=== PATIENT | female | born 1940 | race Caucasian/White ===

== ENCOUNTER → 2017-11-04 | Outpatient (CLI) | payer BC ==
[~2017-11-04] MED LIST: HYDR-3419 PO
== END | disposition home or self-care (01) ==
LOC: C.PATHSPEC 13:18
PROVIDERS: ATTEND Physician Assistant
DX: C44.519 Basal cell carcinoma of skin of other part of trunk (principal)

== ENCOUNTER → 2017-11-24 | Outpatient (CLI) | payer BC | END | disposition home or self-care (01) | LOC: C.PATHSPEC 18:08 | PROVIDERS: ATTEND Plastic Surgery | DX: C44.519 Basal cell carcinoma of skin of other part of trunk (principal) ==

== ENCOUNTER 2021-02-08 15:50 | Inpatient (IN) ==
[2021-02-08] MEDS ORDERED: PANTOprazole 40 MG in SYRINGE 0 ML IV ONE (16:37)
[2021-02-08] MEDS ORDERED: PANTOprazole 80 MG in DEXTROSE 5% 100 ML IV ONE (16:37)
[2021-02-08] MEDS ORDERED: cefTRIAXone SODIUM 2,000 MG/70 ML BAG IV STA (16:49)
[2021-02-08] MEDS ORDERED: SODIUM CHLORIDE 0.9% 1000ML 1,000 ML IV ONE (16:49)
[2021-02-08] MEDS ORDERED: ONDANSETRON INJ 2 MG/ML 2 ML VIAL IV STA (16:49)
[2021-02-08] MEDS ORDERED: PANTOprazole 40 MG in DEXTROSE 5% 100 ML IV SCH (17:15)
[2021-02-08 17:17] LABS: Basophils # (auto) 0.05 K/uL (0-0.2); Basophils % (auto) 0.8 %; Eosinophils # (auto) 0.07 K/uL (0-0.5); Eosinophils % (auto) 1.1 %; Hematocrit (blood only) 23.9 % (37-47); Hemoglobin 7.9 g/dL (12.0-16.0); Immature Granulocytes # (auto) 0.01 K/uL (0.00-0.02); Immature Granulocytes % (auto) 0.2 %; Lymphocytes # (auto) 1.76 K/uL (1.2-3.4); Lymphocytes % (auto) 28.4 %; Mean Corpuscular Hemoglobin 29.4 pg (25-34); Mean Corpuscular Hgb Conc 33.1 g/dL (32-36); Mean Corpuscular Volume 88.8 fL (80-100); Mean Platelet Volume 9.8 fL (7.4-10.4); Monocytes # (auto) 0.33 K/uL (0.11-0.59); Monocytes % (auto) 5.3 %; Neutrophils # (auto) 3.98 K/uL (1.4-6.5); Neutrophils % (auto) 64.2 %; Platelet Count 225 K/uL (130-400); RDW Coefficient of Variation 16.4 % (11.5-14.5); Red Blood Count 2.69 M/uL (4.2-5.4)
[2021-02-08] MEDS ORDERED: SODIUM CHLORIDE 0.9% 250 ML IV PRN ×2 (17:21→21:56)
[2021-02-08 17:29] LABS: Partial Thromboplastin Ratio 0.8; Prothrombin Time 9.8 Seconds (9.0-12.0)
[2021-02-08 17:37] LABS: Albumin Level 3.2 gm/dl (3.4-5.0); BUN Creatinine Ratio 28.1 (10-20); Calcium 7.9 mg/dl (8.5-10.1); Creatinine Clr Calc Pharmacy 28.2 ml/min; Est GFR (African American) 48.6 ml/min; Est GFR (Non-African American) 41.9 ml/min; Potassium 4.2 mmol/L (3.5-5.1)
[2021-02-08 17:39] LABS: RBC Morphology Unremarkable
[2021-02-08 17:40] LABS: Albumin Globulin Ratio 1.3 (0.9-2); Bilirubin,Total 0.3 mg/dl (0.2-1); Globulin 2.5 gm/dl (2.5-4.0); Total Protein 5.7 gm/dl (6.4-8.2)
--- NOTE | 2021-02-08 17:44 | History & Physical Report ---
Date of Service February 08, 2021 Assessment & Plan (1) GIB (gastrointestinal bleeding): This is a 80-year-old female who has significant past medical history of CAD with history of CABG times 11/07/1998, HTN, HLD, CKD stage III, tobacco abuse, carotid artery disease who presents to ED secondary to coffee-ground emesis x3 5 days ago; black tarry stools x1 day. admit to PCU ordered 1 unit prbc will type and cross to hold additional unit trend h&H q6h NPO except sips/chips and strict NPO at midnight consult GI - Dr. Marti aware continue PPI bolus/gtt will avoid any further IVF given pt hemodynamically stable, order placed for nursing to notify provider if SBP < 110 ASA on hold (2) Anemia: Hemoglobin 7.9 Previously on 01/24/2020 hemoglobin 15.7 Secondary to GI loss Type and crossed to receive 1 unit will discuss to place a 2nd unit on hold (3) CAD (coronary artery disease): hx of CABG x 3 in 1998, L radial to LAD, SVG to obtuse marginal, vein graft to RCA follows [facility] cardiology no s/sx of angina on asa, statin, atenolol as outpt asa/atenolol on hold (4) Hypertension: Blood pressure stable, 133/74 will hold atenolol for now, will need reevaluated first thing in the morning (5) Tobacco abuse: Offer nicotine patch, patient declines Dispo: PCU PCP: Yasmeen DNR/DNI Patient was seen and examined in collaboration with Dr. Turner, please see addendum History of Present Illness Chief Complaint: Coffee-ground emesis x3 5 days ago; black tarry stools x1 today. Primary Care Provider: Sarabjit Arana MD This is a 80-year-old female who has significant past medical history of CAD with history of CABG times 11/07/1998, HTN, HLD, CKD stage III, tobacco abuse, carotid artery disease who presents to ED secondary to coffee-ground emesis x3 5 days ago; black tarry stools x1 day. She lives at home alone with her dog. She states on Tuesday she overall did not feel right. She developed acute nausea and the urge to vomit. She had significant vomiting x3 and estimated to be approximately 1 pint of volume and described as dark coffee grounds. She also admits to one small episode of vomiting later on that day. She denied any homero abdominal pain. Since then she had overall had decreased appetite, felt weak, lightheaded and dizzy. Today when she was going to urinate and she went to wipe she noticed black tarry stool on the toilet paper. This prompted her to seek ED. Daughter is at bedside. She denies any prior history of peptic ulcer disease or GI bleeding. She does take a baby aspirin daily secondary to CAD and her last dose was today. Prior to today she had not taken any medications for 5 days. Back in November she had a sore hand and was taking Advil daily and this was approximately for 2 weeks. She denies any alcohol use. She denies any fever, chills, sweats, syncope, chest pain, shortness of breath at rest, shortness breath with exertion, URI symptoms, cough, abdominal pain, dysuria, increased urgency or frequency with urination. In ED patient remained hemodynamically stable but she was found to have a hemoglobin of 7.9. She was typed and crossed in order to be transfused for 1 unit. She was also started on Protonix bolus and drip. Her creatinine was at baseline at 1.2. She was heme positive. Also of note she sustained a skin tear to her right rangel and has been using Neosporin on it daily. She states she fell over a baby gate a week prior. Allergies Allergy/AdvReac Type Severity Reaction Status Date / Time Sulfa (Sulfonamide Allergy Unknown HIVES Verified 02/09/21 08:37 Antibiotics) varenicline [From Chantix] AdvReac Depression Verified 02/09/21 08:37 Home Medications Medication Instructions Recorded Confirmed Type atenolol 25 mg PO QAM 05/20/18 02/08/21 History atorvastatin [Lipitor] 40 mg PO HS 05/20/18 02/08/21 History PreserVision AREDS 2 tab PO BID 02/08/21 02/08/21 History aspirin 81 mg PO QAM 02/08/21 02/08/21 History cholecalciferol (vitamin D3) 25 mcg PO 3XWK 02/08/21 02/08/21 History [Vitamin D3] famotidine [Pepcid] 40 mg PO DAILY PRN 02/08/21 02/08/21 History pantoprazole 40 mg PO BID #60 tab 02/09/21 Rx Past Med/Surg History Medical History CAD (coronary artery disease) Calcium kidney stone GERD (gastroesophageal reflux disease) Hyperlipidemia Hypertension Surgical History History of amputation of toe History of cataract surgery 2mg IV versed given without problems History of hemorrhoidectomy History of tubal ligation Hx of colonoscopy Hx of heart bypass surgery triple, 1998 Family History Mother Colorectal cancer Social History Smoking Status: Current every day smoker Cigarettes Per Day: 10; Second Hand Exposure: Yes; Do You Dip or Chew Tobacco: No; Tobacco Cessation Education Requested by Patient: No Hx Alcohol Use: No Hx Substance Use: No Preferred Language: Syriac Communication Ability: Effective Wet Finisher Required: No Beliefs That Will Affect Care: None marital status: / Current Living Situation: Alone Other Information That Helps Us Care for You: No Feels Safe at Home: Yes Safety Concerns: Feels Safe At This Time Assistive Devices: None Review of Systems Review of Systems: All systems reviewed & are unremarkable except as noted in HPI & below Physical Exam Physical Exam: Constitutional: Thin, petite, elderly, female, cachectic, vitals as above, NAD, sitting up in bed, pleasant, conversing easily Head: Normocephalic, Atraumatic Eyes: PERRL, conjunctivae normal, anicteric sclerae ENMT: external ear and nose normal, oropharynx normal Neck: trachea midline, no thyromegaly normal visual inspection Respiratory: normal respiratory effort, lungs clear to auscultation, no wheeze, rales, rhonchi. Normal insp/exp effort, no accessory muscle use Cardiovascular: RRR, no murmur, no edema Vessels: no JVD or carotid bruit Chest: normal inspection of chest Abdomen: normal bowel sounds, soft, nontender, no hepatosplenomegaly Musculoskeletal: no cyanosis or clubbing, extremities motor strength 5/5 Skin: no rashes, warm and dry normal turgor Neurologic: PERRL, EOMI, accommodation nl, no face palsy, no dysarthria CN's II-XI intact bilaterally and moves all extremities Psychiatric: A+Ox3, euthymic affect Lymphatic: no cervical or axillary lymphadenopathy : deferred Results & Data Results & Data ([facility]) Vital Signs (Past 12 Hours) Vital Signs Temp Pulse Resp BP Pulse Ox 02/08/21 15:53 36.8 C 81 16 133/74 100 Medications Administered Medication List Pantoprazole Sodium 40 mg/ (Dextrose) 100 mls @ 20 mls/hr IV Q5H DONAVON Stop: 03/10/21 17:14 Last Admin: 02/08/21 17:36 Dose: 8 mg/hr, 20 mls/hr Documented by: [id number] Discontinued Medications Pantoprazole Sodium 80 mg/ (Dextrose) 100 mls @ 400 mls/hr IV NOW ONE Stop: 02/08/21 16:51 Last Infusion: 02/08/21 18:27 Dose: 0 mls/hr Documented by: [id number] Admin: 02/08/21 17:14 Dose: 400 mls/hr Documented by: [id number] ECG Rate (beats per minute): 74 Rhythm: normal sinus Findings: + PAC and + T-wave inversion (t wave inversion leads V3, V4) COVID-19 Results Results COVID-19 Adm Lab Results: RBC 2.89 M/uL (4.2-5.4) L 02/09/21 WBC 6.34 K/uL (4.8-10.8) 02/09/21 Hgb 8.5 g/dL (12.0-16.0) L 02/09/21 Hct 25.4 % (37-47) L 02/09/21 Plt Count 193 K/uL (130-400) 02/09/21 Neutrophils (%) (Auto) 49.1 % 02/09/21 Lymphocytes (%) (Auto) 38.0 % 02/09/21 Monocytes # (Auto) 0.54 K/uL (0.11-0.59) 02/09/21 Eosinophils # (Auto) 0.21 K/uL (0-0.5) 02/09/21 Immature Granulocyte % (Auto) 0.2 % 02/09/21 Neutrophils # (Auto) 3.11 K/uL (1.4-6.5) 02/09/21 Lymphocytes # (Auto) 2.41 K/uL (1.2-3.4) 02/09/21 Monocytes # (Auto) 0.54 K/uL (0.11-0.59) 02/09/21 Eosinophils # (Auto) 0.21 K/uL (0-0.5) 02/09/21 Basophils # (Auto) 0.06 K/uL (0-0.2) 02/09/21 Immature Granulocyte # (Auto) 0.01 K/uL (0.00-0.02) 02/09/21 Red Blood Cell Morphology Unremarkable 02/08/21 Na 144 mmol/L (136-145) 02/09/21 K 3.7 mmol/L (3.5-5.1) 02/09/21 Cl 112 mmol/L (98-107) H 02/09/21 CO2 26 mmol/L (21-32) 02/09/21 Anion Gap 6.0 (3-11) 02/09/21 BUN 25 mg/dl (7-18) H 02/09/21 Creatinine 0.91 mg/dl (0.6-1.2) 02/09/21 BUN/Creatinine Ratio 27.6 (10-20) H 02/09/21 Glucose Level 93 mg/dl (70-99) 02/09/21 Ca 7.7 mg/dl (8.5-10.1) L 02/09/21 Total Bilirubin 0.3 mg/dl (0.2-1) 02/08/21 AST/SGOT 20 U/L (15-37) 02/08/21 ALT/SGPT 22 U/L (12-78) 02/08/21 Alkaline Phosphatase 45 U/L (45-117) 02/08/21 Total Protein 5.7 gm/dl (6.4-8.2) L 02/08/21 Albumin 3.2 gm/dl (3.4-5.0) L 02/08/21 Globulin 2.5 gm/dl (2.5-4.0) 02/08/21 Albumin/Globulin Ratio 1.3 (0.9-2) 02/08/21 PTT < 20.0 Seconds (21.0-31.0) L 02/08/21 INR 1.0 (0.9-1.1) 02/08/21 COVID-19 PCR NEGATIVE (Negative) 02/08/21 Chest X-Ray 02/08/21 Code Status & VTE Plan Code Status DNR/DNI VTE Prophylaxis Plan VTE Prophylaxis will be ordered: Yes Reason for no VTE drug order: Contraindicated Supervising Physician Co-Signing Physician Notes Pt was seen and examined. Agreed with Faith EL exam, assessment and plan. 80-year-old female with significant past medical history of CAD with history of CABG, HTN, HLD, CKD stage III, tobacco abuse, carotid artery disease who presents to ED for coffee-ground emesis about 5 days ago and black tarry stools x1 day. Pt said that she feels weak, lightheaded and dizzy today. She said that today after urinating, she wiped and noticed black tarry stool on the toilet paper. She said that she takes a baby aspirin daily. She denies any additional NSAID in the last 2 weeks. Denies any fever, chills, sweats, syncope, chest pain, shortness of breath and palpitation. in the ED, her hgb was 7.9 and heme was positive. She was also started on Protonix bolus and drip. Type and crossed done in the ER and will get 1 unit PRBC. Will consult Gastro. Will make NPO after midnight for possible EGD. Continue monitor CBC closely. MD Yue
[2021-02-08 18:22] LABS: Partial Thromboplastin Time < 20.0 Seconds (21.0-31.0)
--- NOTE | 2021-02-08 18:45 | Emergency Department Note ---
Impression & Plan Anemia, GIB (gastrointestinal bleeding) ED Provider Note NAME: CARLENE PALMA AGE: 80 SEX: F : 1940 ARRIVES VIA: Walk-In INFORMANT: Patient, daughter ED PROVIDER(S): Terrence Butler MD CHIEF COMPLAINT: Black tarry stools HPI: This is an 80-year-old female accompanied by her daughter who presents emergency department complaining of black tarry stools. The patient's daughter reports that the patient was having coffee-ground emesis approximately 5 days ago on Tuesday. The patient herself reports that she has been feeling weak and generally tired over the past several days. She reports any exertion makes the weakness worse however rest makes it better. She has not taken anything for the weakness. In addition the patient also notes that she developed black tarry stools this morning. She reports she has previously had a colonoscopy however has not had no issues. She reports never having a GI bleed before. She reports taking a large amount of ibuprofen for a fall that occurred when she injured her hand back in November. She is currently only on aspirin and no other blood thinners. ROS: See above HPI for pertinent positives & negatives. A total of 10 systems reviewed and were otherwise negative. PAST MEDICAL HISTORY: See Below PAST SURGICAL HISTORY: See Below FAMILY HISTORY: See Below SOCIAL HISTORY: See Below HOME MEDICATIONS: See Below ALLERGIES: See Below VITALS: See Below PHYSICAL EXAMINATION: VITAL SIGNS - Vital signs and nursing notes were reviewed. GENERAL - 80-year-old female appearing stated age who is in no acute distress. Communicates well with provider and answers questions appropriately. SKIN - Without rashes. HEAD - NC/AT. EYES - PERRL with EOMI bilaterally. Sclera anicteric. Palpebral conjunctiva pink and moist with no injection noted. EARS - No deformities of external structures noted on gross examination bilaterally. NOSE - Midline and without cyanosis. No epistaxis or purulent drainage noted. Septum midline without deviation or septal hematoma noted. MOUTH/OROPHARYNX - Without perioral cyanosis. Buccal mucosa pink and moist and without leukoplakia. Tongue midline with equal elevation of palate bilaterally. No tonsillar hypertrophy, erythema, or exudates noted. NECK - Neck with FROM. Supple to palpation. No nuchal rigidity. LUNGS - Chest wall symmetric without accessory muscle use, intercostals retractions, or central cyanosis. Normal vesicular breath sounds CTA B/L. No wheezes, rales, or rhonchi appreciated. CARDIAC - RRR with S1/S2. No murmur, rubs, or gallops appreciated. ABDOMEN - Abdominal contour without pulsations or visible masses. BS normoactive all four quadrants. No tenderness, palpable masses, hepatosplenomegaly, or ascites noted. RECTAL - Black tarry stool, heme positive EXTREMITIES - No clubbing or peripheral cyanosis. No pretibial edema present. +3/5 radial, posterior tibial, and dorsalis pedis pulses palpated throughout. +5/5 strength noted in UE/LE bilaterally. NEUROLOGIC - Cranial nerves II through XII grossly intact. Sensory intact to light touch throughout. Patellar reflexes +2/4. PSYCH - A&Ox3 and cooperates fully with examiner. Pt is very pleasant and interacts well with examiner. MEDICAL DECISION MAKING: Patient was seen and evaluated as above in room C8. Review was performed of nursing notes and vital signs. I did review pertinent previous visits and pat ient history. After obtaining a thorough history and physical examination the above work up was performed. 70-year-old female who presents emergency department complaining of black tarry stools. Stools are heme positive on my physical examination. Patient was started on IV Protonix bolus and drip. She was swabbed for coronavirus. She was typed and screened for 2 units of packed red blood cells. Her hemoglobin is only 7.8. Blood consent was signed and placed on the chart. Patient was typed and crossed for 1 unit of packed red blood cells. I did discuss the case with the hospitalist service who did agree to admit the patient. Patient is in agreement with the treatment plan. An order was placed for continuous cardiac monitoring. The monitor shows a rate of 81 with Normal SInus rhythm. The patient was evaluated during a period of high volume and high acuity during the global COVID-19 pandemic, and that diagnosis was suspected/considered upon their initial presentation. Their evaluation, treatment and testing was consistent with current guidelines for patients who present with complaints or symptoms that may be related to COVID-19. Patient was seen while provider was wearing PPE. Triage Nursing notes reviewed. Prior medical records reviewed Vital Signs: reviewed and remarkable for no significant abnormalities Differential diagnosis: Diverticulosis, AVM, coagulopathy, colitis, inflammatory bowel disease, malignancy, Yanira-Vicente tear, esophagitis, peptic ulcer disease, variceal bleed, gastritis, epistaxis, fissure, hemorrhoids, as well as other pathologies. ER treatment provided: See below Diagnostics interpreted by me: ECG: EKG shows a sinus rhythm with premature atrial complex old septal infarct QTC is 424 ventricular rate is 74 EKG is compared to EKG 07/18/2013 PACs are now present T wave inversions in the inferior leads are now present Laboratory studies: As stated above and show below. Imaging studies: See below Consultation(s): Internal Medicine Critical Care: I have personally spent greater than 30 minutes of critical care time in the direct management of this patient. This includes bedside care, interpretation o f diagnostic studies, and testing, discussion with consultants, patient, and family members, and other required patient management activities. This 30 minutes is in excess of all separately billable procedures. Past Med/Surg History Medical History CAD (coronary artery disease) Calcium kidney stone GERD (gastroesophageal reflux disease) Hyperlipidemia Hypertension Surgical History History of amputation of toe History of cataract surgery 2mg IV versed given without problems History of hemorrhoidectomy History of tubal ligation Hx of colonoscopy Hx of heart bypass surgery triple, 1998 Family History Mother Colorectal cancer Social History Smoking Status: Current every day smoker Cigarettes Per Day: 10; Second Hand Exposure: Yes; Do You Dip or Chew Tobacco: No; Tobacco Cessation Education Requested by Patient: No Hx Alcohol Use: No Hx Substance Use: No Preferred Language: Sierra Leonean Communication Ability: Effective Fire Support Specialist Required: No Beliefs That Will Affect Care: None marital status: / Current Living Situation: Alone Other Information That Helps Us Care for You: No Feels Safe at Home: Yes Safety Concerns: Feels Safe At This Time Assistive Devices: None Allergies Allergies Allergy/AdvReac Type Severity Reaction Status Date / Time Sulfa (Sulfonamide Allergy Unknown HIVES Verified 02/09/21 08:37 Antibiotics) varenicline [From Chantix] AdvReac Depression Verified 02/09/21 08:37 Home Meds Home Medications Medication Instructions Recorded Confirmed atenolol 25 mg PO QAM 05/20/18 02/08/21 atorvastatin [Lipitor] 40 mg PO HS 05/20/18 02/08/21 PreserVision AREDS 2 tab PO BID 02/08/21 02/08/21 aspirin 81 mg PO QAM 02/08/21 02/08/21 cholecalciferol (vitamin D3) 25 mcg PO 3XWK 02/08/21 02/08/21 [Vitamin D3] famotidine [Pepcid] 40 mg PO DAILY PRN 02/08/21 02/08/21 Previous Rx's Medication Instructions Recorded pantoprazole 40 mg PO BID #60 tab 02/09/21 Results & Data (ED) Vital Signs Vital Signs - 24 hr 02/08/21 15:53 Temperature 36.8 C Temperature Source Temporal Artery Scan Pulse Rate 81 Pulse Rhythm Regular Pulse Strength Normal Respiratory Rate 16 Respiratory Effort / Characteristics Non-Labored Respiratory Depth Normal Respiratory Pattern Regular Blood Pressure 133/74 Blood Pressure Mean 93 Blood Pressure Position Sitting Pulse Oximetry 100 Oxygen Delivery Method Room Air Sepsis Recent Fever Within 48 Hours No Sepsis New/Unexplained Change in Mental Status N/A Sepsis Action Taken by Nursing No Action Required Laboratory Data Result diagrams: 02/09/21 05:16 02/09/21 05:16 Lab Results 02/08/21 02/08/21 02/08/21 Range/Units 16:37 17:02 17:02 WBC 6.20 (4.8-10.8) K/uL RBC 2.69 L (4.2-5.4) M/uL Hgb 7.9 L (12.0-16.0) g/dL Hct 23.9 L (37-47) % MCV 88.8 (80-100) fL MCH 29.4 (25-34) pg MCHC 33.1 (32-36) g/dL RDW Std Deviation 52.0 H (36.4-46.3) fL RDW Coeff of Essie 16.4 H (11.5-14.5) % Plt Count 225 (130-400) K/uL MPV 9.8 (7.4-10.4) fL Immature Gran % (Auto) 0.2 % Neut % (Auto) 64.2 % Lymph % (Auto) 28.4 % Dickey % (Auto) 5.3 % Eos % (Auto) 1.1 % Baso % (Auto) 0.8 % Neut # (Auto) 3.98 (1.4-6.5) K/uL Lymph # (Auto) 1.76 (1.2-3.4) K/uL Dickey # (Auto) 0.33 (0.11-0.59) K/uL Eos # (Auto) 0.07 (0-0.5) K/uL Baso # (Auto) 0.05 (0-0.2) K/uL Immature Gran # (Auto) 0.01 (0.00-0.02) K/uL RBC Morphology Unremarkable PT (9.0-12.0) Seconds INR (0.9-1.1) APTT (21.0-31.0) Seconds PTT Ratio Sodium (136-145) mmol/L Potassium (3.5-5.1) mmol/L Chloride (98-107) mmol/L Carbon Dioxide (21-32) mmol/L Anion Gap (3-11) BUN (7-18) mg/dl Creatinine (0.6-1.2) mg/dl Est Cr Clr Drug Dosing ml/min Est GFR ( Amer) ml/min Est GFR (Non-Af Amer) ml/min BUN/Creatinine Ratio (10-20) Glucose (70-99) mg/dl Calcium (8.5-10.1) mg/dl Total Bilirubin (0.2-1) mg/dl AST (15-37) U/L ALT (12-78) U/L Alkaline Phosphatase (45-117) U/L Total Protein (6.4-8.2) gm/dl Albumin (3.4-5.0) gm/dl Globulin (2.5-4.0) gm/dl Albumin/Globulin Ratio (0.9-2) POC Stool Occult Blood Positive A (Negative) Blood Type O Positive Antibody Screen NEGATIVE Crossmatch See Detail 02/08/21 02/08/21 Range/Units 17:02 17:02 WBC (4.8-10.8) K/uL RBC (4.2-5.4) M/uL Hgb (12.0-16.0) g/dL Hct (37-47) % MCV (80-100) fL MCH (25-34) pg MCHC (32-36) g/dL RDW Std Deviation (36.4-46.3) fL RDW Coeff of Essie (11.5-14.5) % Plt Count (130-400) K/uL MPV (7.4-10.4) fL Immature Gran % (Auto) % Neut % (Auto) % Lymph % (Auto) % Dickey % (Auto) % Eos % (Auto) % Baso % (Auto) % Neut # (Auto) (1.4-6.5) K/uL Lymph # (Auto) (1.2-3.4) K/uL Dickey # (Auto) (0.11-0.59) K/uL Eos # (Auto) (0-0.5) K/uL Baso # (Auto) (0-0.2) K/uL Immature Gran # (Auto) (0.00-0.02) K/uL RBC Morphology PT 9.8 (9.0-12.0) Seconds INR 1.0 (0.9-1.1) APTT < 20.0 L (21.0-31.0) Seconds PTT Ratio 0.8 Sodium 142 (136-145) mmol/L Potassium 4.2 (3.5-5.1) mmol/L Chloride 111 H (98-107) mmol/L Carbon Dioxide 26 (21-32) mmol/L Anion Gap 5.0 (3-11) BUN 34 H (7-18) mg/dl Creatinine 1.21 H (0.6-1.2) mg/dl Est Cr Clr Drug Dosing 28.2 ml/min Est GFR ( Amer) 48.6 ml/min Est GFR (Non-Af Amer) 41.9 ml/min BUN/Creatinine Ratio 28.1 H (10-20) Glucose 100 H (70-99) mg/dl Calcium 7.9 L (8.5-10.1) mg/dl Total Bilirubin 0.3 (0.2-1) mg/dl AST 20 (15-37) U/L ALT 22 (12-78) U/L Alkaline Phosphatase 45 (45-117) U/L Total Protein 5.7 L (6.4-8.2) gm/dl Albumin 3.2 L (3.4-5.0) gm/dl Globulin 2.5 (2.5-4.0) gm/dl Albumin/Globulin Ratio 1.3 (0.9-2) POC Stool Occult Blood (Negative) Blood Type Antibody Screen Crossmatch Administered Medications Discontinued Medications Atenolol (Atenolol 25 Mg Tablet) 25 mg PO QAM DONAVON Stop: 03/11/21 08:59 Last Admin: 02/09/21 08:00 Dose: Not Given Documented by: [id number] Atorvastatin Calcium (Atorvastatin 40 Mg Tab) 40 mg PO HS DONAVON Stop: 03/10/21 21:55 Last Admin: 02/08/21 22:26 Dose: 40 mg Documented by: [id number] Pantoprazole Sodium 80 mg/ (Dextrose) 100 mls @ 400 mls/hr IV NOW ONE Stop: 02/08/21 16:51 Last Infusion: 02/08/21 18:27 Dose: 0 mls/hr Documented by: [id number] Admin: 02/08/21 17:14 Dose: 400 mls/hr Documented by: [id number] Ceftriaxone Sodium (Rocephin) 2,000 mg in 70 mls @ 140 mls/hr IV NOW STA Stop: 02/08/21 17:18 Last Admin: 02/08/21 19:43 Dose: Not Given Documented by: [id number] Sodium Chloride (Nss 1000ml) 1,000 mls @ 999 mls/hr IV .[id number] ONE Stop: 02/08/21 17:49 Last Admin: 02/08/21 20:45 Dose: Not Given Documented by: [id number] Pantoprazole Sodium 40 mg/ (Dextrose) 100 mls @ 20 mls/hr IV Q5H DONAVON Stop: 03/10/21 17:14 Last Infusion: 02/08/21 21:59 Dose: 0 mg/hr, 0 mls/hr Documented by: [id number] Admin: 02/08/21 17:36 Dose: 8 mg/hr, 20 mls/hr Documented by: [id number] Pantoprazole Sodium 40 mg/ (Dextrose) 100 mls @ 20 mls/hr IV Q5H DONAVON Stop: 03/10/21 22:29 Last Infusion: 02/09/21 15:00 Dose: 0 mg/hr, 0 mls/hr Documented by: [id number] Admin: 02/09/21 09:47 Dose: 8 mg/hr, 20 mls/hr Documented by: [id number] Infusion: 02/09/21 08:56 Dose: 8 mg/hr, 20 mls/hr Documented by: [id number] Admin: 02/09/21 03:56 Dose: 8 mg/hr, 20 mls/hr Documented by: [id number] Infusion: 02/09/21 03:56 Dose: 8 mg/hr, 20 mls/hr Documented by: [id number] Admin: 02/08/21 23:06 Dose: 8 mg/hr, 20 mls/hr Documented by: [id number] Sodium Chloride (Nss) 500 mls @ 500 mls/hr IV .Q1H ONE Stop: 02/09/21 05:39 Last Infusion: 02/09/21 06:17 Dose: 0 mls/hr Documented by: [id number] Admin: 02/09/21 05:14 Dose: 500 mls/hr Documented by: [id number] Lactated Ringer's (Lr) 1,000 mls @ 60 mls/hr IV .[id number] DONAVON Stop: 03/11/21 05:44 Last Infusion: 02/09/21 15:38 Dose: 0 mls/hr Documented by: [id number] Admin: 02/09/21 06:18 Dose: 60 mls/hr Documented by: [id number] Multivitamins/Minerals (Cerovite Adv Formula Tab) 1 tab PO BID DONAVON Stop: 03/10/21 21:55 Last Admin: 02/09/21 08:01 Dose: Not Given Documented by: [id number] Admin: 02/08/21 22:26 Dose: 1 tab Documented by: [id number] Neomycin/Polymyxin/Bacitracin (Neomycin/Polymyx/Bacitr Oint 15 Gm Tube) 1 appln EXT DAILY DONAVON Stop: 03/10/21 21:55 Last Admin: 02/08/21 22:26 Dose: 1 appln Documented by: [id number] Ondansetron HCl (Ondansetron Inj 2 Mg/Ml 2 Ml Vial) 4 mg IV NOW STA Stop: 02/08/21 16:50 Last Admin: 02/08/21 20:45 Dose: Not Given Documented by: [id number] Discharge Plan Visit Data Chief Complaint: GI Assessment Stated Complaint: WEAKNESS,TARRY STOOL ED Provider: Terrence Butler Discharge Problem: Anemia, GIB (gastrointestinal bleeding) Patient Disposition: Admitted As Inpatient Discharge Instructions Interventions: ED Discharge Assessment Last Done: 02/08/21 20:50
--- NOTE | 2021-02-08 18:50 | XRay Report ---
XR chest 1V portable HISTORY: Preop. COMPARISON: None. FINDINGS: Mild emphysema with chronic mild interstitial thickening. No new focal lung consolidations to suggest pneumonia. No evidence for pulmonary edema. The heart is mildly enlarged. There are postst ernotomy changes. IMPRESSION: Emphysema and mild chronic interstitial thickening.. No acute process within the chest. ACT 112: Negative or not required by law. Electronically signed by: Chilango Marrero M.D. 02/08/2021 6:49 PM
[2021-02-08] MEDS ORDERED: PNEUMOCOCCAL POLYSACCHARIDES 25 MCG/0.5 ML VIAL/SYR IM ONE (21:50)
[2021-02-08] MEDS ORDERED: NEOMYCIN/POLYMYX/BACITR OINT 15 GM TUBE EXT SCH (21:56)
[2021-02-08] MEDS ORDERED: ATORVASTATIN 40 MG TAB PO SCH (21:56)
[2021-02-08] MEDS ORDERED: ONDANSETRON INJ 2 MG/ML 2 ML VIAL IV PRN (21:56)
[2021-02-08] MEDS ORDERED: POLYETHYLENE (MIRALAX) 17 GM PACK PO PRN (21:56)
[2021-02-08] MEDS ORDERED: ALUMINUM/MAGNESIUM SUSP 30 ML UDC PO PRN (21:56)
[2021-02-08] MEDS ORDERED: ACETAMINOPHEN 325 MG TAB PO PRN (21:56)
[2021-02-08] MEDS: CEROVITE ADV FORMULA TAB PO SCH (22:26)
[2021-02-08] MEDS: PANTOprazole 40 MG in DEXTROSE 5% 100 ML IV SCH (23:06)
[2021-02-09 00:53] LABS: Hematocrit (blood only) 26.5 % (37-47); Hemoglobin 8.5 g/dL (12.0-16.0); Mean Corpuscular Hemoglobin 28.7 pg (25-34); Mean Corpuscular Hgb Conc 32.1 g/dL (32-36); Mean Corpuscular Volume 89.5 fL (80-100); Mean Platelet Volume 10.1 fL (7.4-10.4); Platelet Count 208 K/uL (130-400); RDW Coefficient of Variation 16.1 % (11.5-14.5); RDW Standard Deviation 51.5 fL (36.4-46.3); Red Blood Count 2.96 M/uL (4.2-5.4); White Blood Count 6.85 K/uL (4.8-10.8)
[2021-02-09] MEDS: PANTOprazole 40 MG in DEXTROSE 5% 100 ML IV SCH ×2 (03:56→09:47)
[2021-02-09] MEDS ORDERED: SODIUM CHLORIDE 0.9% 500 ML IV ONE (04:40)
[2021-02-09 05:25] LABS: Basophils # (auto) 0.06 K/uL (0-0.2); Basophils % (auto) 0.9 %; Eosinophils # (auto) 0.21 K/uL (0-0.5); Eosinophils % (auto) 3.3 %; Hematocrit (blood only) 25.4 % (37-47); Hemoglobin 8.5 g/dL (12.0-16.0); Immature Granulocytes # (auto) 0.01 K/uL (0.00-0.02); Immature Granulocytes % (auto) 0.2 %; Lymphocytes # (auto) 2.41 K/uL (1.2-3.4); Mean Corpuscular Hemoglobin 29.4 pg (25-34); Mean Corpuscular Hgb Conc 33.5 g/dL (32-36); Mean Corpuscular Volume 87.9 fL (80-100); Mean Platelet Volume 9.8 fL (7.4-10.4); Monocytes # (auto) 0.54 K/uL (0.11-0.59); Monocytes % (auto) 8.5 %; Neutrophils # (auto) 3.11 K/uL (1.4-6.5); Neutrophils % (auto) 49.1 %; Platelet Count 193 K/uL (130-400); RDW Coefficient of Variation 15.9 % (11.5-14.5); RDW Standard Deviation 50.5 fL (36.4-46.3); Red Blood Count 2.89 M/uL (4.2-5.4); White Blood Count 6.34 K/uL (4.8-10.8)
[2021-02-09 05:43] LABS: BUN Creatinine Ratio 27.6 (10-20); Calcium 7.7 mg/dl (8.5-10.1); Creatinine Clr Calc Pharmacy 35.4 ml/min; Est GFR (African American) 68.6 ml/min; Est GFR (Non-African American) 59.2 ml/min; Magnesium 2.1 mg/dl (1.8-2.4); Potassium 3.7 mmol/L (3.5-5.1)
[2021-02-09] MEDS ORDERED: LACTATED RINGER'S 1,000 ML IV SCH (05:45)
[2021-02-09] MEDS: CEROVITE ADV FORMULA TAB PO SCH (08:01)
[2021-02-09] MEDS ORDERED: ATROPINE SULFATE 0.1 MG/ML 10ML SYR IV PRN (08:35)
[2021-02-09] MEDS ORDERED: ePHEDrine sulfate 50 MG/ML AMP IV PRN (08:35)
--- NOTE | 2021-02-09 08:35 | Anesthesiology Consultation ---
Date of Service February 09, 2021 Assessment & Plan ASA ASA3 Proposed Anesthesia Anesthesia Type: MAC Risk / Benefits Reviewed With: PT / POA / Parent / Guardian, Accepts Plan and Informed Consent Obtained History Surgery Operation Date: 02/09/21 16:15 Proposed Procedures p Esophagogastroduodenoscopy Dr Cook - Onofre Cook MD Height/Weight Height: 5 ft 5 in Weight: 46.3 kg Allergies Allergy/AdvReac Type Severity Reaction Status Date / Time Sulfa (Sulfonamide Allergy Unknown HIVES Verified 02/08/21 16:30 Antibiotics) varenicline [From Chantix] AdvReac Depression Verified 02/08/21 16:30 Medications Home Medications Medication Instructions Recorded Confirmed Last Taken atenolol 25 mg PO QAM 05/20/18 02/08/21 02/08/21 atorvastatin [Lipitor] 40 mg PO HS 05/20/18 02/08/21 02/03/21 aspirin 81 mg PO QAM 02/08/21 02/08/21 02/08/21 cholecalciferol (vitamin D3) 25 mcg PO 3XWK 02/08/21 02/08/21 02/04/21 [Vitamin D3] famotidine [Pepcid] 40 mg PO DAILY PRN 02/08/21 02/08/21 Unknown vitamins A,C,[id number]-[id number] 2 tab PO BID 02/08/21 02/08/21 02/08/21 [PreserVision AREDS] Active Medications Generic Name Dose Route Start Last Admin Trade Name Freq PRN Reason Stop Dose Admin Atenolol 25 mg 02/09/21 09:00 02/09/21 08:00 Atenolol 25 Mg Tablet PO 03/11/21 08:59 Not Given QAM DONAVON Atorvastatin Calcium 40 mg 02/08/21 21:56 02/08/21 22:26 Atorvastatin 40 Mg Tab PO 03/10/21 21:55 40 mg HS DONAVON Administration Pantoprazole Sodium 40 mg/ 100 mls @ 20 mls/hr 02/08/21 22:30 02/09/21 03:56 Dextrose IV 03/10/21 22:29 8 mg/hr Q5H DONAVON 20 mls/hr Administration 8 MG/HR Lactated Ringer's 1,000 mls @ 60 mls/hr 02/09/21 05:45 02/09/21 06:18 Lr IV 03/11/21 05:44 60 mls/hr .[id number] DONAVON Administration Multivitamins/Minerals 1 tab 02/08/21 21:56 02/09/21 08:01 Cerovite Adv Formula Tab PO 03/10/21 21:55 Not Given BID DONAVON Neomycin/Polymyxin/Bacitracin 1 appln 02/08/21 21:56 02/08/21 22:26 Neomycin/Polymyx/Bacitr Oint 15 Gm Tube EXT 03/10/21 21:55 1 appln DAILY DONAVON Administration Past Medical History Medical History CAD (coronary artery disease) Calcium kidney stone GERD (gastroesophageal reflux disease) Hyperlipidemia Hypertension Exercise / Class Metabolic Activity II 4-5 Yardwork/Stairs/Walk up hill Past Family History Family History Mother Colorectal cancer Past Surgical History Surgical History History of amputation of toe History of cataract surgery 2mg IV versed given without problems History of hemorrhoidectomy History of tubal ligation Hx of colonoscopy Hx of heart bypass surgery , 1998 Past Anesthesia History No Hx of Anesthesia Complications and No Family Hx of Anesthesia Complications History of PONV No Hx of PONV and No Hx of Motion Sickness Social History Smoking Status: Current every day smoker tobacco type: cigarettes Smoking cigarettes per day: 10 Do You Dip or Chew Tobacco: No Hx Alcohol Use: No Hx Substance Use: No substance use type: does not use Review of Systems denies fever/cough/ colds/ chest pain/ SOB/ MICHELLE denies MICHELLE Physical Exam Vital Signs Last Vital Signs Temp 36.6 C 02/09/21 07:24 Pulse 57 L 02/09/21 08:00 Resp 16 02/09/21 07:24 BP 108/60 02/09/21 07:24 Pulse Ox 93 02/09/21 07:24 ENMT Mouth: + edentulous; no TMJ abnormality and no dentition abnormality Thyromental Distance: > or= 3.5 Finger Breadths Mallampati Class: II Neck neck extension not limited Respiratory normal respiratory effort; no respiratory distress Auscultation: lungs clear to auscultation bilaterally Cardiovascular Rate/Rhythm: regular rate and regular rhythm Neurologic moves all extremities Psychiatric Orientation: alert and oriented x 3 Testing Laboratory Results 02/09/21 05:16 02/09/21 05:16 PT 9.8 Seconds (9.0-12.0) 02/08/21 17:02 INR 1.0 (0.9-1.1) 02/08/21 17:02 APTT < 20.0 Seconds (21.0-31.0) L 02/08/21 17:02 Blood Type O Positive 02/08/21 17:02 Antibody Screen NEGATIVE 02/08/21 17:02
--- NOTE | 2021-02-09 08:38 | History & Physical Report ---
Date of Service February 09, 2021 Assessment & Plan Admission and Anticipated Discharge Date Admission Date: February 08, 2021 History of Present Illness Primary Care Provider: Sarabjit Arana MD UGIB CV: RRR Resp: CTA Abd: soft A/P: UGIB - EGD Allergies Allergy/AdvReac Type Severity Reaction Status Date / Time Sulfa (Sulfonamide Allergy Unknown HIVES Verified 02/09/21 08:37 Antibiotics) varenicline [From Chantix] AdvReac Depression Verified 02/09/21 08:37 Home Medications Medication Instructions Recorded Confirmed Type atenolol 25 mg PO QAM 05/20/18 02/08/21 History atorvastatin [Lipitor] 40 mg PO HS 05/20/18 02/08/21 History aspirin 81 mg PO QAM 02/08/21 02/08/21 History cholecalciferol (vitamin D3) 25 mcg PO 3XWK 02/08/21 02/08/21 History [Vitamin D3] famotidine [Pepcid] 40 mg PO DAILY PRN 02/08/21 02/08/21 History vitamins A,C,G-xzez-jyhvii 2 tab PO BID 02/08/21 02/08/21 History [PreserVision AREDS] Past Med/Surg History Medical History CAD (coronary artery disease) Calcium kidney stone GERD (gastroesophageal reflux disease) Hyperlipidemia Hypertension Surgical History History of amputation of toe History of cataract surgery 2mg IV versed given without problems History of hemorrhoidectomy History of tubal ligation Hx of colonoscopy Hx of heart bypass surgery triple, 1998 Family History Mother Colorectal cancer Social History Smoking Status: Current every day smoker Cigarettes Per Day: 10; Second Hand Exposure: Yes; Do You Dip or Chew Tobacco: No; Tobacco Cessation Education Requested by Patient: No Hx Alcohol Use: No Hx Substance Use: No Preferred Language: Irish Communication Ability: Effective 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 Beliefs That Will Affect Care: None marital status: / Current Living Situation: Alone Other Information That Helps Us Care for You: No Feels Safe at Home: Yes Safety Concerns: Feels Safe At This Time Assistive Devices: None Results & Data ([facility]) Vital Signs (Past 12 Hours) Vital Signs Temp Pulse Pulse Resp BP BP Pulse Ox 02/09/21 08:00 57 L 02/09/21 07:24 36.6 C 71 16 108/60 93 02/09/21 03:34 36.7 C 65 16 96/58 L 93 02/09/21 00:13 63 02/09/21 00:11 36.9 C 67 18 106/62 94 02/08/21 23:08 36.7 C 61 18 122/71 97 02/08/21 22:05 36.8 C 67 18 133/68 97 02/08/21 21:59 64 02/08/21 21:56 02/08/21 21:27 37.0 C 68 18 139/75 100 02/08/21 21:05 37.3 C 65 20 115/61 98 Pulse Ox 02/09/21 08:00 02/09/21 07:24 02/09/21 03:34 02/09/21 00:13 02/09/21 00:11 02/08/21 23:08 02/08/21 22:05 02/08/21 21:59 02/08/21 21:56 100 02/08/21 21:27 02/08/21 21:05 Code Status & VTE Plan VTE Prophylaxis Plan VTE Prophylaxis will be ordered: Yes Reason for no VTE drug order: Contraindicated
[2021-02-09] MEDS ORDERED: PROPOFOL IV EMULSION 10 MG/ML 20 ML VIAL IV ONE (08:59)
[2021-02-09] MEDS ORDERED: LIDOCAINE 2% 2 ML VIAL/AMP(20MG/ML) INFIL ONE (08:59)
[2021-02-09] MEDS ORDERED: ATENOLOL 25 MG TABLET PO SCH (09:00)
--- NOTE | 2021-02-09 09:09 | GI REPORT ---
Patient Name: Kane Diop Procedure Date: 02/09/2021 8:28 AM Date of : 1940 Admit Type: Inpatient Age: 80 Gender: Female Attending MD: Onofre Cook MD Procedure: Upper GI endoscopy Providers: Onofre Cook MD Referring MD: CARMEN HERRING Indications: Coffee-ground emesis Medicines: See the Anesthesia note for documentation of the administered medications Complications: No immediate complications. Estimated Blood Loss: Estimated blood loss: none. Procedure: Pre-Anesthesia Assessment: - ASA Grade Assessment: III - A patient with severe systemic disease. After obtaining informed consent, the endoscope was passed under direct vision. Throughout the procedure, the patient's blood pressure, pulse, and oxygen saturations were monitored continuously. The Endoscope was introduced through the mouth, and advanced to the second part of duodenum. The upper GI endoscopy was accomplished without difficulty. The patient tolerated the procedure well. Findings: The Z-line was regular and was found 40 cm from the incisors. There was a mild ring at the GE junction. The exam of the esophagus was otherwise normal. There was 7-8 mm small submucosal mass in the fundus of the stomach. There appeared to be a second 7-8 mm small submucosal mass in the fundus. There were three 4-5 benign appearing clean based ulcers in the antrum. There was patchy erythema in the antrum. The remainder of the stomach was normal. The duodenum was normal. Biopsies done from throught the stomach and also from ulcer edges. Impression: Antral ulcers, clean based. Submucosal mass in fundus. Recommendation: Discharge pt to floor. Oral BID PPI x 2 mos. Repeat EGD and EUS in 8 weeks. OK to continue antiplatelet therapy, minimize NSAIDs. Please call with questions. Onofre Cook M.D. Onofre Cook MD 02/09/2021 9:08:46 AM This report has been signed electronically. Note Initiated On: 02/09/2021 8:28 AM Number of Addenda: 0 I attest to the content of the Intraoperative Record and orders documented therein, exceptions below {[id number]}
--- NOTE | 2021-02-09 09:22 | Anesthesiology Progress Note ---
Date of Service February 09, 2021 Anesthesia Post Procedure Vital Signs Vital Signs: Temp Pulse Pulse Pulse Resp BP BP 02/09/21 09:08 66 18 98/52 L 02/09/21 08:30 36.5 C 67 14 127/69 02/09/21 08:00 57 L 02/09/21 07:24 36.6 C 71 16 108/60 02/09/21 03:34 36.7 C 65 16 96/58 L 02/09/21 00:13 63 02/09/21 00:11 36.9 C 67 18 106/62 02/08/21 23:08 36.7 C 61 18 122/71 02/08/21 22:05 36.8 C 67 18 133/68 02/08/21 21:59 64 02/08/21 21:56 02/08/21 21:27 37.0 C 68 18 139/75 02/08/21 21:05 37.3 C 65 20 115/61 02/08/21 20:35 37.3 C 65 20 115/61 02/08/21 20:20 37.1 C 65 20 108/57 L 02/08/21 20:00 37.1 C 69 19 114/60 02/08/21 19:01 68 19 02/08/21 19:00 70 15 85/55 L 02/08/21 18:50 65 16 02/08/21 18:40 66 15 02/08/21 18:30 65 19 103/58 L 02/08/21 18:20 71 19 02/08/21 18:10 69 19 02/08/21 18:01 68 26 H 02/08/21 18:00 69 22 111/65 02/08/21 17:50 71 18 111/52 L 02/08/21 17:40 68 23 02/08/21 17:30 70 14 02/08/21 17:20 70 19 02/08/21 17:10 71 17 02/08/21 17:00 69 25 H 02/08/21 16:50 73 17 02/08/21 16:40 70 16 02/08/21 16:30 72 20 02/08/21 16:20 72 17 02/08/21 16:17 73 17 02/08/21 16:15 78 24 114/67 02/08/21 15:53 36.8 C 81 16 133/74 02/08/21 15:29 77 19 133/92 Pulse Ox Pulse Ox 02/09/21 09:08 98 02/09/21 08:30 94 02/09/21 08:00 02/09/21 07:24 93 02/09/21 03:34 93 02/09/21 00:13 02/09/21 00:11 94 02/08/21 23:08 97 02/08/21 22:05 97 02/08/21 21:59 02/08/21 21:56 100 02/08/21 21:27 100 02/08/21 21:05 98 02/08/21 20:35 97 02/08/21 20:20 97 02/08/21 20:00 97 02/08/21 19:01 98 02/08/21 19:00 96 02/08/21 18:50 98 02/08/21 18:40 98 02/08/21 18:30 98 02/08/21 18:20 02/08/21 18:10 97 02/08/21 18:01 97 02/08/21 18:00 97 02/08/21 17:50 98 02/08/21 17:40 02/08/21 17:30 02/08/21 17:20 97 02/08/21 17:10 96 02/08/21 17:00 02/08/21 16:50 02/08/21 16:40 95 02/08/21 16:30 96 02/08/21 16:20 97 02/08/21 16:17 96 02/08/21 16:15 96 02/08/21 15:53 100 02/08/21 15:29 Transfer of Care Handoff Completed per policy Notes Mental Status: alert / awake / arousable and participated in evaluation Patient Amnestic to Procedure: Yes Nausea / Vomiting: adequately controlled Pain: adequately controlled Airway Patency, RR, SpO2: stable & adequate BP & HR: stable & adequate Hydration State: stable & adequate Anesthetic Complications: no major complications apparent and Pt Satisfied with anesthetic care
--- NOTE | 2021-02-09 13:44 | Electrocardiogram Report ---
Test Reason : Blood Pressure : / mmHG Vent. Rate : 074 BPM Atrial Rate : 074 BPM P-R Int : 150 ms QRS Dur : 074 ms QT Int : 382 ms P-R-T Axes : 094 046 059 degrees QTc Int : 424 ms Sinus rhythm with Premature atrial complexes Septal infarct (cited on or before 18-JUL-2013) Abnormal ECG When compared with ECG of 18-JUL-2013 13:45, Premature atrial complexes are now Present Nonspecific T wave abnormality now evident in Inferior leads Nonspecific T wave abnormality now evident in Lateral leads Confirmed by Terell Doyle ([id number]) on 02/09/2021 1:44:00 PM Referred By: REFERRED SELF Confirmed By:Terell Doyle
--- NOTE | 2021-02-09 15:25 | Hospitalist Progress Note ---
Date of Service February 09, 2021 Assessment & Plan (1) GIB (gastrointestinal bleeding): (2) Anemia: This is a 80-year-old female who has significant past medical history of CAD with history of CABG times 11/07/1998, HTN, HLD, CKD stage III, tobacco abuse, carotid artery disease who presents to ED secondary to coffee-ground emesis x3 5 days ago; black tarry stools x1 day. Hgb on admission 7.9 Type and crossed and received 1 unit of PRBC last night Hgb 8.5 today gastro on board S/P EGD done today showed antral ulcers with clean based. Submucosal mass in fundus. Case discussed with GI that recommended Oral BID PPI x 2 months. then Repeat EGD and EUS in 8 weeks. OK to continue antiplatelet therapy and minimize NSAIDs as per Gastro Ok from gastro standpoint to discharge home (3) CAD (coronary artery disease): hx of CABG x 3 in 1998, L radial to LAD, SVG to obtuse marginal, vein graft to RCA no s/sx of angina on asa, statin, atenolol as outpt Ok from gastro to continue aspirin (4) Hypertension: BP stable (5) Tobacco abuse: Counseling on smoking cessation PCP: Yasmeen DNR/DNI Discharge home today Admission and Anticipated Discharge Date Admission Date: February 08, 2021 Subjective Pt was seen and examined for follow up of GI bleed Lying in bed with no distress Pt said that she feels much better She said that she had a bowel movement this morning that was normal Pt had an EGD done this morning Denies any chest pain, palpitation, dizziness and SOB Review of Systems Review of Systems: All systems reviewed & are unremarkable except as noted in Subjective Physical Exam Physical Exam: General- No acute distress Head- atraumatic Eyes- PERRL, EOMI, ENT- oropharynx clear Neck- supple, no JVD Lungs- clear to auscultation Heart- regular rhythm; no murmur Abdomen- normal bowel sounds, soft, nontender Extremities- no calf tenderness Neuro- alert, oriented x 3; PERRL, EOMI; no facial palsy; no dysarthria Skin- warm & dry Results & Data Results & Data ([facility]) Vital Signs (Past 12 Hours) Vital Signs Temp Pulse Pulse Pulse Resp BP Pulse Ox 02/09/21 10:47 36.5 C 56 L 18 123/67 98 02/09/21 10:00 36.6 C 62 20 123/67 95 02/09/21 09:36 59 L 18 115/89 98 02/09/21 09:23 62 18 119/63 98 02/09/21 09:08 66 18 98/52 L 98 02/09/21 08:30 36.5 C 67 14 127/69 94 02/09/21 08:00 57 L 02/09/21 07:24 36.6 C 71 16 108/60 93 02/09/21 03:34 36.7 C 65 16 96/58 L 93
--- NOTE | 2021-02-18 00:46 | Discharge Summary ---
Date of Service February 09, 2021 Admission HPI Per Admitting Provider This is a 80-year-old female who has significant past medical history of CAD with history of CABG times 11/07/1998, HTN, HLD, CKD stage III, tobacco abuse, carotid artery disease who presents to ED secondary to coffee-ground emesis x3 5 days ago; black tarry stools x1 day. She lives at home alone with her dog. She states on Tuesday she overall did not feel right. She developed acute nausea and the urge to vomit. She had significant vomiting x3 and estimated to be approximately 1 pint of volume and described as dark coffee grounds. She also admits to one small episode of vomiting later on that day. She denied any homero abdominal pain. Since then she had overall had decreased appetite, felt weak, lightheaded and dizzy. Today when she was going to urinate and she went to wipe she noticed black tarry stool on the toilet paper. This prompted her to seek ED. Daughter is at bedside. She denies any prior history of peptic ulcer disease or GI bleeding. She does take a baby aspirin daily secondary to CAD and her last dose was today. Prior to today she had not taken any medications for 5 days. Back in November she had a sore hand and was taking Advil daily and this was approximately for 2 weeks. She denies any alcohol use. She denies any fever, chills, sweats, syncope, chest pain, shortness of breath at rest, shortness breath with exertion, URI symptoms, cough, abdominal pain, dysuria, increased urgency or frequency with urination. In ED patient remained hemodynamically stable but she was found to have a hemoglobin of 7.9. She was typed and crossed in order to be transfused for 1 unit. She was also started on Protonix bolus and drip. Her creatinine was at baseline at 1.2. She was heme positive. Also of note she sustained a skin tear to her right rangel and has been using Neosporin on it daily. She states she fell over a baby gate a week prior. Admission Exam Per Admitting Provider Constitutional: Thin, petite, elderly, female, cachectic, vitals as above, NAD, sitting up in bed, pleasant, conversing easily Head: Normocephalic, Atraumatic Eyes: PERRL, conjunctivae normal, anicteric sclerae ENMT: external ear and nose normal, oropharynx normal Neck: trachea midline, no thyromegaly normal visual inspection Respiratory: normal respiratory effort, lungs clear to auscultation, no wheeze, rales, rhonchi. Normal insp/exp effort, no accessory muscle use Cardiovascular: RRR, no murmur, no edema Vessels: no JVD or carotid bruit Chest: normal inspection of chest Abdomen: normal bowel sounds, soft, nontender, no hepatosplenomegaly Musculoskeletal: no cyanosis or clubbing, extremities motor strength 5/5 Skin: no rashes, warm and dry normal turgor Neurologic: PERRL, EOMI, accommodation nl, no face palsy, no dysarthria CN's II-XI intact bilaterally and moves all extremities Psychiatric: A+Ox3, euthymic affect Lymphatic: no cervical or axillary lymphadenopathy : deferred Principal Diagnosis (1) GIB (gastrointestinal bleeding): (2) Anemia: (3) CAD (coronary artery disease): (4) Hypertension: (5) Tobacco abuse: Discharge Exam General- No acute distress Head- atraumatic Eyes- PERRL, EOMI, ENT- oropharynx clear Neck- supple, no JVD Lungs- clear to auscultation Heart- regular rhythm; no murmur Abdomen- normal bowel sounds, soft, nontender Extremities- no calf tenderness Neuro- alert, oriented x 3; PERRL, EOMI; no facial palsy; no dysarthria Skin- warm & dry Discharge Data Allergies Allergy/AdvReac Type Severity Reaction Status Date / Time Sulfa (Sulfonamide Allergy Unknown HIVES Verified 02/09/21 08:37 Antibiotics) varenicline [From Chantix] AdvReac Depression Verified 02/09/21 08:37 Consultations 02/08/21 17:46 ED Decision to Admit Stat 02/08/21 18:33 Consult Gastroenterology Routine Procedures Performed Operation Date: 02/09/21 16:15 Actual Procedures p EGD Biopsy Cytology - Onofre Cook MD Ordered Studies XR chest 1V portable HISTORY: Preop. COMPARISON: None. FINDINGS: Mild emphysema with chronic mild interstitial thickening. No new focal lung consolidations to suggest pneumonia. No evidence for pulmonary edema. The heart is mildly enlarged. There are poststernotomy changes. IMPRESSION: Emphysema and mild chronic interstitial thickening.. No acute process within the chest. ACT 112: Negative or not required by law. Electronically signed by: Chilango Marrero M.D. 02/08/2021 6:49 PM Dictated: 02/08/211847Transcribed: 02/08/211847 Hospital Course (1) GIB (gastrointestinal bleeding): This is a 80-year-old female who has significant past medical history of CAD with history of CABG times 11/07/1998, HTN, HLD, CKD stage III, tobacco abuse, carotid artery disease who presents to ED secondary to coffee-ground emesis x3 5 days ago; black tarry stools x1 day. Hgb on admission 7.9 Type and crossed and received 1 unit of PRBC last night Hgb 8.5 today gastro on board S/P EGD admit to PCU ordered 1 unit prbc will type and cross to hold additional unit trend h&H q6h NPO except sips/chips and strict NPO at midnight consult GI - Dr. Marti aware continue PPI bolus/gtt will avoid any further IVF given pt hemodynamically stable, order placed for nursing to notify provider if SBP < 110 ASA on hold (2) Anemia: This is a 80-year-old female who has significant past medical history of CAD with history of CABG times 11/07/1998, HTN, HLD, CKD stage III, tobacco abuse, carotid artery disease who presents to ED secondary to coffee-ground emesis x3 5 days ago; black tarry stools x1 day. Hgb on admission 7.9 Type and crossed and received 1 unit of PRBC last night Hgb 8.5 today gastro on board S/P EGD done today showed antral ulcers with clean based. Submucosal mass in fundus. Case discussed with GI that recommended Oral BID PPI x 2 months. then Repeat EGD and EUS in 8 weeks. OK to continue antiplatelet therapy and minimize NSAIDs as per Gastro Ok from gastro standpoint to discharge home (3) CAD (coronary artery disease): hx of CABG x 3 in 1998, L radial to LAD, SVG to obtuse marginal, vein graft to RCA no s/sx of angina on asa, statin, atenolol as outpt Ok from gastro to continue aspirin (4) Hypertension: BP stable (5) Tobacco abuse: Counseling on smoking cessation PCP: [place] DNR/DNI Discharge home today Total Time Total Time Spent Total Time Spent (In Minutes): 35 minutes Total Time Includes: Examination of the Patient, Discharge Planning, Medication Reconciliation, Communication With Other Providers and Other Discharge Plan Discharge Items Patient Disposition: Home - Self-Care Reason For Visit: GIB Discharge Diagnosis: (1) GIB (gastrointestinal bleeding): (2) Anemia: (3) CAD (coronary artery disease): (4) Hypertension: (5) Tobacco abuse: Activity: Resume your previous activity Non-emergency contact: Primary Care Provider Call non-emergency contact if: you have any medication questions Follow-up/Referrals: Sarabjit Arana MD [Primary Care Provider] - (Date & Time 02/16/2021 2:00 PM Provider Sarabjit Arana III, MD Department [facility] ) Diet: Heart Healthy Addtl Attending Provider Instructions: Follow up with your primary care provider Dr. Arana on 02/16/2021 at 2:00 PM at the [facility] Follow up with gastroenterology to arrange for the repeat endoscopy and endoscopy ultrasound in 8 weeks ( Your provider can arrange for the referral) Continue Oral pantoprazole for 2 months. Check CBC in 1 week to monitor your hemoglobin Please minimize the use of NSAIDs such as Motrin, Aleve, Naproxen, Advil, Ibuprofen....due to risk of bleeding fall precaution Counseling on tobacco cessation Pending Studies at Discharge: No Stand-Alone Forms: My [facility], Smoking Cessation Medications and DC Order Prescriptions: New pantoprazole 40 mg tablet,delayed release (DR/EC) 40 mg PO BID Qty: 60 RF: 1 Continued atorvastatin [Lipitor] 40 mg Tablet 40 mg PO HS RF: 0 atenolol 25 mg Tablet 25 mg PO QAM RF: 0 famotidine [Pepcid] 40 mg Tablet 40 mg PO DAILY PRN (Reason: gastric upset) RF: 0 aspirin 81 mg Tablet,Delayed Release (Dr/Ec) 81 mg PO QAM RF: 0 cholecalciferol (vitamin D3) [Vitamin D3] 25 mcg (1,000 unit) Tablet 25 mcg PO 3XWK RF: 0 PreserVision AREDS 7,160 unit- 113 mg-100 unit Tablet 2 tab PO BID RF: 0 Discharge Orders: Discharge Order (Routine); Ordered 02/09/21 Ordered By: Darrell Turner Admission Data Admit Date/Time: 02/08/21 17:49 Attending Provider: Darrell Turner Admit Provider: Darrell Turner Primary Care Provider: Sarabjit Arana Other Providers: Darrell Turner ; Mai Marti Other Interventions: Discharge Summary Assessment (RN) Last Done: 02/09/21 15:58
== END 2021-02-09 17:25 | disposition home or self-care (01) | DRG 379 ==
LOC: ED 15:50 → 2S 17:49
DX: K92.2 Gastrointestinal hemorrhage, unspecified; Z66 Do not resuscitate; I25.10 Atherosclerotic heart disease of native coronary artery without angina pectoris; Z79.82 Long term (current) use of aspirin; D64.9 Anemia, unspecified; K21.9 Gastro-esophageal reflux disease without esophagitis; E78.5 Hyperlipidemia, unspecified; I10 Essential (primary) hypertension; F17.210 Nicotine dependence, cigarettes, uncomplicated

== ENCOUNTER 2023-05-31 12:08 | Inpatient (IN) ==
--- NOTE | 2023-05-31 12:15 | ED Triage Note ---
Date of Service May 31, 2023 History of Present Illness This patient was briefly evaluated while in triage. An abbreviated physical exam was performed. This patient is a 83-year-old Female who presents to the ED for evaluation of shortness of breath. She was sent from her doctor's office who said her oxygen level was 80. She reports cough and shortness of breath over the past 5 days. Physical Exam VITALS: Vitals are noted on the nurse's note and reviewed by myself. GENERAL: This is an 83-year-old female, sitting upright in chair in triage. SKIN: The skin was without rashes. HEART: Regular rate and rhythm without murmurs gallops or rubs. LUNGS: Decreased breath sounds throughout. NEURO: Patient was alert and oriented to person place and time. Initial orders for labs and / or imaging were placed and patient was placed in the waiting area until a bed is available. Please see further documentation for the full ED course.
[2023-05-31] MEDS ORDERED: ALBUT/IPRATROP 3MG/0.5MG NEB 3 ML VIAL NEB STA (13:15)
[2023-05-31] MEDS ORDERED: dexAMETHasone**PF** 10 MG/ML VIAL IV ONE (13:15)
[2023-05-31 13:23] LABS: Hematocrit (blood only) 47.8 % (37.0-47.0); Mean Corpuscular Hemoglobin 29.1 pg (25.0-34.0); Mean Corpuscular Hgb Conc 33.5 g/dL (32.0-36.0); Mean Corpuscular Volume 87.1 fL (80.0-100.0); Mean Platelet Volume 11.2 fL (9.4-12.4); Platelet Count 267 K/uL (130-400); RDW Coefficient of Variation 15.7 % (11.5-14.5); RDW Standard Deviation 50.1 fL (36.4-46.3); Red Blood Count 5.49 M/uL (4.20-5.40); White Blood Count 12.11 K/ul (4.8-10.8)
--- NOTE | 2023-05-31 13:27 | Emergency Department Note ---
Impression & Plan Acute exacerbation of chronic obstructive pulmonary disease, Hypoxia, Elevated troponin I level, Pneumonia ED Provider Note NAME: CARLENE PALMA AGE: 83 SEX: F : 1940 ARRIVES VIA: Walk-In INFORMANT: Patient, ED PROVIDER(S): Terell Street DO CHIEF COMPLAINT: Difficulty breathing HPI: The patient is an 83-year-old female who presented to the emergency department for an evaluation of difficulty breathing. The patient's had cough and difficulty breathing since last Tuesday. The patient was seen by her primary care physician today and was sent directly to the emergency department for an evaluation because of oxygen saturations that were in the low 80s. The patient describes a cough. She denies having any chest pain or lower extremity swelling. She denies having any hemoptysis. She denies having a similar episode in the past. She is a tobacco user. ROS: See above HPI for pertinent positives & negatives. A total of 10 systems reviewed and were otherwise negative. PAST MEDICAL HISTORY: See Below PAST SURGICAL HISTORY: See Below FAMILY HISTORY: See Below SOCIAL HISTORY: See Below HOME MEDICATIONS: See Below ALLERGIES: See Below VITALS: See Below PHYSICAL EXAMINATION: GENERAL: Patient is awake alert in no acute distress patient is resting comfortably and showing no signs of anxiety EYES: The conjunctivae are clear. The pupils are round and reactive. EARS, NOSE, MOUTH AND THROAT: The nose is without any evidence of any deformity. Mucous membranes are moist. Tongue is midline. NECK: The neck is nontender and supple. RESPIRATORY: Diminished breath sounds are noted throughout. Poor air movement was noted. There is no tachypnea or conversational dyspnea appreciated. CARDIOVASCULAR: Regular rate and rhythm noted there no murmurs rubs or gallops normal S1 normal S2. GASTROINTESTINAL: The abdomen is soft. Abdomen is nontender. MUSCULOSKELETAL/EXTREMITIES: There is no evidence of gross deformity full range of motion is noted in the hips and shoulders. SKIN: There is no obvious evidence of any rash. There are no petechiae, pallor or cyanosis noted. NEUROLOGIC: Patient is awake alert and oriented x3 MEDICAL DECISION MAKING: The patient is an 83-year-old female who presented to the emergency department for shortness of breath. The patient was initially seen at her primary care physician's office. She was found to be hypoxic. The patient does have a history of tobacco use. Her history and physical exam appear to be consistent with COPD exacerbation however her chest x-ray does appear to have signs of infiltrate. She was treated with IV fluids IV antibiotics as well as DuoNeb and IV steroids. She was reevaluated multiple times. She still remains on supplemental oxygen but is feeling much better. I discussed her condition with her. She was agreeable to evaluation by the hospitalist. [facility] have agreed to evaluate the patient in the emergency department for further management and disposition. Triage Nursing notes reviewed. Prior medical records reviewed Vital Signs: reviewed and remarkable for hypoxia and tachycardia. Differential diagnosis: Reactive airway disease, pneumonia, pneumothorax, COPD, CHF, infections, cardiac ischemia, pulmonary embolism, musculoskeletal, gastrointestinal, as well as other pathologies. ER treatment provided: See below Diagnostics interpreted by me: ECG: EKG was obtained in the emergency department. My interpretation is sinus tachycardia at 117 bpm. There is no ectopy. Nonspecific ST and T wave abnormalities were noted. This was compared to a tracing from February 11, 2021. No changes were noted. Cardiac Monitoring: An order was placed for continuous cardiac monitoring. The monitor shows a rate of 108 bpm with sinus tachycardia. Laboratory studies: As stated above and show below. Imaging studies: See below. Radiographic imaging was reviewed by myself Consultation(s): I discussed this case with Heidy who [facility] ED COURSE: Procedures: none Critical Care: I have personally spent greater than 45 minutes of critical care time in the direct management of this patient. This includes bedside care, interpretation of diagnostic studies, and testing, discussion with consultants, patient, and family members, and other required patient management activities. This 45 minutes is in excess of all separately billable procedures. Past Med/Surg History Medical History Anemia CAD (coronary artery disease) Calcium kidney stone GERD (gastroesophageal reflux disease) GIB (gastrointestinal bleeding) Hyperlipidemia Hypertension Tobacco abuse Surgical History History of amputation of toe History of cataract surgery 2mg IV versed given without problems History of hemorrhoidectomy History of tubal ligation Hx of colonoscopy Hx of heart bypass surgery triple, 1998 Family History Mother Colorectal cancer Social History Smoking Status: Former smoker Cigarettes Per Day: 10; Second Hand Exposure: Yes; Do You Dip or Chew Tobacco: No; Hx Alcohol Use: No Hx Substance Use: No Preferred Language: Malay Communication Ability: Effective Change Management Lead Required: No Beliefs That Will Affect Care: None marital status: / Current Living Situation: Alone Feels Safe at Home: Yes Assistive Devices: None Allergies Allergies Allergy/AdvReac Type Severity Reaction Status Date / Time Sulfa (Sulfonamide Allergy Unknown HIVES Verified 02/09/21 08:37 Antibiotics) varenicline [From Chantix] AdvReac Depression Verified 02/09/21 08:37 Home Meds Home Medications Medication Instructions Recorded Confirmed atenolol 25 mg tablet 25 mg PO QAM 05/20/18 02/08/21 atorvastatin 40 mg tablet (Lipitor) 40 mg PO HS 05/20/18 02/08/21 aspirin 81 mg tablet,delayed 81 mg PO QAM 02/08/21 02/08/21 release cholecalciferol (vitamin D3) 25 25 mcg PO 3XWK 02/08/21 02/08/21 mcg (1,000 unit) tablet (Vitamin D3) famotidine 40 mg tablet (Pepcid) 40 mg PO DAILY PRN gastric upset 02/08/21 02/08/21 vitamins A,C,E-qgmn-yehmjm 2,148 2 tab PO BID 02/08/21 02/08/21 mcg-113 mg-45 mg-17.4 mg tablet (PreserVision AREDS) Previous Rx's Medication Instructions Recorded pantoprazole 40 mg tablet,delayed 40 mg PO BID #60 tabs 02/09/21 release Results & Data (ED) Vital Signs Vital Signs - 24 hr 05/31/23 12:10 05/31/23 12:35 05/31/23 12:35 Temperature 37 C Temperature Source Temporal Artery Scan Pulse Rate 113 H Pulse Rate [Apical] 115 H Respiratory Rate 20 26 H Respiratory Effort / Characteristics Non-Labored Spontaneous Respiratory Depth Normal Respiratory Pattern Regular Blood Pressure 138/83 Blood Pressure [Right Arm] 154/98 H Blood Pressure Mean 101 Blood Pressure Mean [Right Arm] 116 Blood Pressure Position [Right Arm] Lying Pulse Oximetry 85 L 95 85 L Oxygen Delivery Method Room Air Nasal Cannula Nasal Cannula Oxygen Flow Rate 4 2 Sepsis Recent Fever Within 48 Hours No Sepsis New/Unexplained Change in Mental Status No Sepsis Action Taken by Nursing No Action Required Oxygen Flow Rate - Titration 4 Pulse Oximetry Post Tiitration 95 05/31/23 12:35 05/31/23 13:07 05/31/23 14:14 Temperature Temperature Source Pulse Rate 105 H 117 H Pulse Rate [Apical] 108 H Respiratory Rate 24 22 Respiratory Effort / Characteristics Respiratory Depth Respiratory Pattern Blood Pressure Blood Pressure [Right Arm] 131/87 Blood Pressure Mean Blood Pressure Mean [Right Arm] 101 Blood Pressure Position [Right Arm] Lying Pulse Oximetry 95 96 Oxygen Delivery Method Nasal Cannula Nasal Cannula Oxygen Flow Rate 4 4 Sepsis Recent Fever Within 48 Hours Sepsis New/Unexplained Change in Mental Status Sepsis Action Taken by Nursing Oxygen Flow Rate - Titration Pulse Oximetry Post Tiitration Home Medications Current Medication List: was personally reviewed by me Laboratory Data Attestation: I reviewed the patient's lab results. 05/31/23 12:46 05/31/23 12:46 Lab Results 05/31/23 05/31/23 05/31/23 Range/Units 12:40 12:46 12:46 WBC 12.11 H (4.8-10.8) K/ul RBC 5.49 H (4.20-5.40) M/uL Hgb 16.0 (12.0-16.0) g/dl Hct 47.8 H (37.0-47.0) % MCV 87.1 (80.0-100.0) fL MCH 29.1 (25.0-34.0) pg MCHC 33.5 (32.0-36.0) g/dL RDW Std Deviation 50.1 H (36.4-46.3) fL RDW Coeff of Essie 15.7 H (11.5-14.5) % Plt Count 267 (130-400) K/uL MPV 11.2 (9.4-12.4) fL Immature Gran % (Auto) 0.3 % Neut % (Auto) 84.6 % Lymph % (Auto) 2.6 % [place] % (Auto) 11.5 % Eos % (Auto) 0.3 % Baso % (Auto) 0.7 % Neut # (Auto) 10.23 H (1.40-6.50) K/uL Lymph # (Auto) 0.32 L (1.20-3.40) K/uL [place] # (Auto) 1.39 H (0.11-0.59) K/uL Eos # (Auto) 0.04 (0.00-0.50) K/uL Baso # (Auto) 0.09 (0.00-0.20) K/uL Immature Gran # (Auto) 0.04 (0.01-0.20) K/uL Polychromasia 1+ VBG pH (7.36-7.41) VBG pCO2 (38-50) mmHg VBG pO2 mmHg VBG HCO3 mmol/L VBG O2 Saturation % VBG Base Excess mEq/L Methemoglobin (0.0-1.5) % Sodium 139 (136-145) mmol/L Potassium 3.7 (3.5-5.1) mmol/L Chloride 101 (98-107) mmol/L Carbon Dioxide 27 (21-32) mmol/L Anion Gap 11 (3-11) BUN 23 (6-23) mg/dl Creatinine 0.96 (0.6-1.2) mg/dl Est Cr Clr Drug Dosing 31.7 ml/min Est GFR ( Amer) 62.9 ml/min Est GFR (Non-Af Amer) 54.3 ml/min BUN/Creatinine Ratio 24.0 H (10-20) Glucose 153 H (70-99(Fasting)) mg/dl Lactate (0.4-2.0) mmol/L Calcium 9.5 (8.6-10.3) mg/dl Total Bilirubin 0.8 (0.2-1.0) mg/dl AST 28 (13-39) U/L ALT 23 (7-52) U/L Alkaline Phosphatase 101 (34-104) U/L Troponin I High Sens 35.2 H (0-14) pg/ml B-Natriuretic Peptide (0-100) pg/ml Total Protein 7.8 (6.0-8.3) gm/dl Albumin 3.9 (3.4-5.0) gm/dl Globulin 3.9 (2.5-4.0) gm/dl Albumin/Globulin Ratio 1.0 (0.9-2) Procalcitonin (0-0.5) ng/ml SARS-CoV-2 (PCR) NEGATIVE (Negative) Influenza Type A (PCR) Negative (Neg) Influenza Type B (PCR) Negative (Neg) RSV (RT-PCR) Negative (Neg) 05/31/23 05/31/23 05/31/23 Range/Units 12:46 12:50 13:57 WBC (4.8-10.8) K/ul RBC (4.20-5.40) M/uL Hgb (12.0-16.0) g/dl Hct (37.0-47.0) % MCV (80.0-100.0) fL MCH (25.0-34.0) pg MCHC (32.0-36.0) g/dL RDW Std Deviation (36.4-46.3) fL RDW Coeff of Essie (11.5-14.5) % Plt Count (130-400) K/uL MPV (9.4-12.4) fL Immature Gran % (Auto) % Neut % (Auto) % Lymph % (Auto) % [place] % (Auto) % Eos % (Auto) % Baso % (Auto) % Neut # (Auto) (1.40-6.50) K/uL Lymph # (Auto) (1.20-3.40) K/uL [place] # (Auto) (0.11-0.59) K/uL Eos # (Auto) (0.00-0.50) K/uL Baso # (Auto) (0.00-0.20) K/uL Immature Gran # (Auto) (0.01-0.20) K/uL Polychromasia VBG pH (7.36-7.41) VBG pCO2 (38-50) mmHg VBG pO2 mmHg VBG HCO3 mmol/L VBG O2 Saturation % VBG Base Excess mEq/L Methemoglobin (0.0-1.5) % Sodium (136-145) mmol/L Potassium (3.5-5.1) mmol/L Chloride (98-107) mmol/L Carbon Dioxide (21-32) mmol/L Anion Gap (3-11) BUN (6-23) mg/dl Creatinine (0.6-1.2) mg/dl Est Cr Clr Drug Dosing ml/min Est GFR ( Amer) ml/min Est GFR (Non-Af Amer) ml/min BUN/Creatinine Ratio (10-20) Glucose (70-99(Fasting)) mg/dl Lactate 2.1 H* (0.4-2.0) mmol/L Calcium (8.6-10.3) mg/dl Total Bilirubin (0.2-1.0) mg/dl AST (13-39) U/L ALT (7-52) U/L Alkaline Phosphatase (34-104) U/L Troponin I High Sens (0-14) pg/ml B-Natriuretic Peptide 182 H (0-100) pg/ml Total Protein (6.0-8.3) gm/dl Albumin (3.4-5.0) gm/dl Globulin (2.5-4.0) gm/dl Albumin/Globulin Ratio (0.9-2) Procalcitonin 3.60 H (0-0.5) ng/ml SARS-CoV-2 (PCR) (Negative) Influenza Type A (PCR) (Neg) Influenza Type B (PCR) (Neg) RSV (RT-PCR) (Neg) 05/31/23 05/31/23 Range/Units 13:57 13:57 WBC (4.8-10.8) K/ul RBC (4.20-5.40) M/uL Hgb (12.0-16.0) g/dl Hct (37.0-47.0) % MCV (80.0-100.0) fL MCH (25.0-34.0) pg MCHC (32.0-36.0) g/dL RDW Std Deviation (36.4-46.3) fL RDW Coeff of Essie (11.5-14.5) % Plt Count (130-400) K/uL MPV (9.4-12.4) fL Immature Gran % (Auto) % Neut % (Auto) % Lymph % (Auto) % [place] % (Auto) % Eos % (Auto) % Baso % (Auto) % Neut # (Auto) (1.40-6.50) K/uL Lymph # (Auto) (1.20-3.40) K/uL [place] # (Auto) (0.11-0.59) K/uL Eos # (Auto) (0.00-0.50) K/uL Baso # (Auto) (0.00-0.20) K/uL Immature Gran # (Auto) (0.01-0.20) K/uL Polychromasia VBG pH 7.39 (7.36-7.41) VBG pCO2 47 (38-50) mmHg VBG pO2 27 mmHg VBG HCO3 29 mmol/L VBG O2 Saturation < 60.0 % VBG Base Excess 2.8 mEq/L Methemoglobin < 0.7 (0.0-1.5) % Sodium (136-145) mmol/L Potassium (3.5-5.1) mmol/L Chloride (98-107) mmol/L Carbon Dioxide (21-32) mmol/L Anion Gap (3-11) BUN (6-23) mg/dl Creatinine (0.6-1.2) mg/dl Est Cr Clr Drug Dosing ml/min Est GFR ( Amer) ml/min Est GFR (Non-Af Amer) ml/min BUN/Creatinine Ratio (10-20) Glucose (70-99(Fasting)) mg/dl Lactate (0.4-2.0) mmol/L Calcium (8.6-10.3) mg/dl Total Bilirubin (0.2-1.0) mg/dl AST (13-39) U/L ALT (7-52) U/L Alkaline Phosphatase (34-104) U/L Troponin I High Sens (0-14) pg/ml B-Natriuretic Peptide (0-100) pg/ml Total Protein (6.0-8.3) gm/dl Albumin (3.4-5.0) gm/dl Globulin (2.5-4.0) gm/dl Albumin/Globulin Ratio (0.9-2) Procalcitonin (0-0.5) ng/ml SARS-CoV-2 (PCR) (Negative) Influenza Type A (PCR) (Neg) Influenza Type B (PCR) (Neg) RSV (RT-PCR) (Neg) Administered Medications Sodium Chloride (Nss) 1,000 mls @ 999 mls/hr IV .[id number] ONE Stop: 05/31/23 15:27 Last Admin: 05/31/23 14:32 Dose: 999 mls/hr Documented By: MMG Discontinued Medications Albuterol (Albut/Ipratrop 3mg/0.5mg Neb 3 Ml Vial) 3 ml NEB NOW STA; Protocol Stop: 05/31/23 13:16 Last Admin: 05/31/23 13:26 Dose: 3 ml Documented By: PHIG Dexamethasone Sodium Phosphate (DexamethasonePf 10 Mg/Ml Vial) 10 mg IV NOW ONE Stop: 05/31/23 13:16 Last Admin: 05/31/23 13:26 Dose: 10 mg Documented By: PHIG Ceftriaxone Sodium (Rocephin) 2,000 mg in 50 mls @ 100 mls/hr IV NOW STA Stop: 05/31/23 14:36 Last Admin: 05/31/23 14:29 Dose: 100 mls/hr Documented By: MIGNON Imaging Data Attestation: I personally reviewed and interpreted this imaging study as follows: My Impression: 1 view chest x-ray was obtained in the emergency department. My interpretation is COPD changes with hyperventilation and possible infiltrate noted in the right lung field. Final report pending. Discharge Plan Visit Data Chief Complaint: Shortness of Breath/Dyspnea Stated Complaint: LOW 02,CHEST CONGESTION ED Provider: Terell Street Discharge Problem: Acute exacerbation of chronic obstructive pulmonary disease, Hypoxia, Elevated troponin I level, Pneumonia Patient Disposition: Being Evaluated by Hospitalist Forms Stand Alone Forms: My [facility] Prescriptions Prescriptions: No Action atorvastatin [Lipitor] 40 mg Tablet 40 mg PO HS atenolol 25 mg Tablet 25 mg PO QAM famotidine [Pepcid] 40 mg Tablet 40 mg PO DAILY PRN (Reason: gastric upset) aspirin 81 mg Tablet,Delayed Release (Dr/Ec) 81 mg PO QAM cholecalciferol (vitamin D3) [Vitamin D3] 25 mcg (1,000 unit) Tablet 25 mcg PO 3XWK Rx Instructions: Tuesdayday Tuesday PreserVision AREDS 7,160 unit- 113 mg-100 unit Tablet 2 tab PO BID pantoprazole 40 mg tablet,delayed release (DR/EC) 40 mg PO BID Qty: 60 1RF Referrals Referrals: Sarabjit Arana MD [Primary Care Provider] -
[2023-05-31 13:43] LABS: Albumin Level 3.9 gm/dl (3.4-5.0); Basophils # (auto) 0.09 K/uL (0.00-0.20); Basophils % (auto) 0.7 %; Bilirubin,Total 0.8 mg/dl (0.2-1.0); Calcium 9.5 mg/dl (8.6-10.3); Creatinine Clr Calc Pharmacy 31.7 ml/min; Eosinophils # (auto) 0.04 K/uL (0.00-0.50); Eosinophils % (auto) 0.3 %; Est GFR (African American) 62.9 ml/min; Est GFR (Non-African American) 54.3 ml/min; Globulin 3.9 gm/dl (2.5-4.0); Immature Granulocytes # (auto) 0.04 K/uL (0.01-0.20); Immature Granulocytes % (auto) 0.3 %; Lymphocytes # (auto) 0.32 K/uL (1.20-3.40); Lymphocytes % (auto) 2.6 %; Monocytes # (auto) 1.39 K/uL (0.11-0.59); Monocytes % (auto) 11.5 %; Neutrophils # (auto) 10.23 K/uL (1.40-6.50); Neutrophils % (auto) 84.6 %; Polychromasia 1+; Potassium 3.7 mmol/L (3.5-5.1); Total Protein 7.8 gm/dl (6.0-8.3)
[2023-05-31 13:49] LABS: Troponin I High Sensitivity 35.2 pg/ml (0-14)
[2023-05-31 13:57] LABS: Influenza A virus by PCR Negative (Neg); Influenza B virus by PCR Negative (Neg); RSV by PCR Negative (Neg); SARS CoV2 RNA(COVID-19) Ceph NEGATIVE (Negative)
[2023-05-31] MEDS ORDERED: cefTRIAXone SODIUM 2,000 MG/50 ML BAG IV STA (14:07)
[2023-05-31 14:17] LABS: Base Excess VBG 2.8 mEq/L; HCO3 VBG 29 mmol/L; Oxygen Saturation VBG < 60.0 %; PCO2 VBG 47 mmHg (38-50); PO2 VBG 27 mmHg; pH VBG 7.39 (7.36-7.41)
[2023-05-31] MEDS ORDERED: SODIUM CHLORIDE 0.9% 1,000 ML IV ONE (14:27)
--- NOTE | 2023-05-31 14:49 | History & Physical Report ---
Date of Service May 31, 2023 Assessment & Plan (1) Acute hypoxic respiratory failure: (2) Multifocal pneumonia: Plan: This is an 83yo F with a PMH of HTN, CAD, HLD, CKD III, ongoing tobacco use and other medical problems listed below who presents with worsening SOB x 3 days and was found to have acute hypoxic respiratory failure in setting of multifocal pneumonia. SOB and cough x 3 days, sent in by PCP due to hypoxia at 84% on room air in office(not on home O2) Afebrile, but meeting sepsis criteria with WBC 12, HR 110s, lactate 2.1 -> 1.3, procal 3.60 PCR negative for covid, RSV, flu CT chest obtained for better visualization, r/o PE - no pulmonary emboli identified. Multifocal bilateral pulmonary airspace opacities, greater within the right lung. The findings favor multifocal pneumonia. A follow-up chest CT in 2 months to ensure resolution is recommended. Suspected mild interstitial pulmonary edema. Continue Rocephin, doxycycline for CAP coverage Initially given IV Decadron in ED, no indication to continue at this time, re- evaluate in AM [facility] QIDR, incentive spirometry, continue supplemental O2 and wean as tolerated (3) Atrial fibrillation with rapid ventricular response: Plan: Initially presented in sinus tachycardia HR 110s in setting of PNA, ruled out PE Code purple called around 1700 - HR in 150s with repeat EKG showing new onset A fib with RVR, likely precipitated by PNA and IV Decadron as above Given 2.5mg IV Lopressor x 1 with decreased HR to 100 Starting Lopressor 25mg PO BID with hold parameters 2D echo, magnesium level 2.0, routine cardiology consult, NPO @ [facility] Starting IV heparin for now new onset (4) Tobacco abuse: Plan: Smoking 1/2 ppd but hasn't in 1 week due to feeling poorly, 50 pack years. Cessation education. Offered nicotine patch but declined (5) CAD (coronary artery disease): Plan: Chronic; stable. Continue aspirin, statin, atenolol held as lopressor started for afib (6) Hypertension: Plan: Chronic; stable (7) Hyperlipidemia: Plan: Chronic; stable. Continue statin (8) CKD (chronic kidney disease), stage III: Plan: Cr 0.96 - stable. Monitor with daily BMP DVT Ppx: IV heparin as above Code status: FULL PCP: [facility] Dispo: Admit to PCU Patient seen in collaboration with Dr. Banegas. Please see addendum. History of Present Illness Chief Complaint: SOB Primary Care Provider: Sarabjit Arana MD This is an 83yo F with a PMH of HTN, CAD, HLD, CKD III, ongoing tobacco use and other medical problems listed below who presents with worsening SOB x 3 days. Symptoms began on Tuesday and worsening over the weekend. Feels exhausted, more SOB, increased cough. Had a few small emesis episodes as well but thinks it was mucus she had swallowed. Seen by PCP this morning and noted to be hypoxic in office at 84% and directed to ED for further evaluation. Is not on oxygen at baseline. Smokes 1/2 ppd, 50 pack years per chart review but has not felt well enough to smoking over a week. Denies any fever or chills, lightheadedness, chest pain, palpitations, wheezing, nausea, abdominal pain, dysuria, diarrhea or constipation. Denies any formal diagnosis of COPD in the past. Allergies Allergy/AdvReac Type Severity Reaction Status Date / Time Sulfa (Sulfonamide Allergy Unknown HIVES Verified 02/09/21 08:37 Antibiotics) varenicline [From Chantix] AdvReac Depression Verified 02/09/21 08:37 Home Medications Medication Instructions Recorded Confirmed Type atenolol 25 mg tablet 25 mg PO QAM 05/20/18 05/31/23 History atorvastatin 40 mg tablet (Lipitor) 40 mg PO HS 05/20/18 05/31/23 History aspirin 81 mg tablet,delayed 81 mg PO QAM 02/08/21 05/31/23 History release cholecalciferol (vitamin D3) 25 25 mcg PO 3XWK 02/08/21 05/31/23 History mcg (1,000 unit) tablet (Vitamin D3) famotidine 40 mg tablet (Pepcid) 40 mg PO DAILY PRN gastric upset 02/08/21 05/31/23 History vitamins A,C,M-ewde-cdwgjk 2,148 2 tab PO BID 02/08/21 05/31/23 History mcg-113 mg-45 mg-17.4 mg tablet (PreserVision AREDS) pantoprazole 40 mg tablet,delayed 40 mg PO BID #60 tabs 02/09/21 05/31/23 Rx release Past Med/Surg History Medical History Anemia CAD (coronary artery disease) Calcium kidney stone CKD (chronic kidney disease), stage III GERD (gastroesophageal reflux disease) GIB (gastrointestinal bleeding) Hyperlipidemia Hypertension Tobacco abuse Surgical History History of amputation of toe History of cataract surgery 2mg IV versed given without problems History of hemorrhoidectomy History of tubal ligation Hx of colonoscopy Hx of heart bypass surgery triple, 1998 Family History Mother Colorectal cancer Social History Smoking Status: Current every day smoker Cigarettes Per Day: 10; Second Hand Exposure: Yes; Do You Dip or Chew Tobacco: No; Hx Alcohol Use: No Hx Substance Use: No Preferred Language: Polish Communication Ability: Effective 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 Physical Exam Physical Exam: General Appearance: WD/WN, vitals as above, NAD, sitting up in bed, pleasant, conversing easily Head: normocephalic, atraumatic Eyes: normal inspection, PERRL, conjunctivae normal, anicteric sclerae ENT: external ear and nose normal, oropharynx normal Neck: normal visual inspection, trachea midline, no thyromegaly Respiratory: normal respiratory effort, diminished lung sounds throughout, mild bibasilar rales, no wheeze or rhonchi. No accessory muscle use Cardiovascular: tachycardic rate, normal peripheral pulses, no BLE edema. Vessels: no JVD Chest: normal inspection of chest Abdomen/GI: normal bowel sounds, soft, nontender, no hepatosplenomegaly Extremities/Musculoskeletal: no cyanosis or clubbing, extremities motor strength 5/5 Neurologic: PERRL, EOMI, accommodation nl, no face palsy, no dysarthria, CN's II-XI intact bilaterally and moves all extremities Psychiatric: A+Ox3, euthymic affect Skin: no rashes, normal color, warm/dry Results & Data Results & Data Vital Signs (Past 12 Hours) Vital Signs Temp Pulse Pulse Resp BP BP Pulse Ox 05/31/23 14:14 108 H 22 131/87 96 05/31/23 13:07 117 H 05/31/23 12:35 105 H 24 95 05/31/23 12:35 85 L 05/31/23 12:35 115 H 26 H 154/98 H 95 05/31/23 12:10 37 C 113 H 20 138/83 85 L O2 Del Method O2 Flow Rate 05/31/23 14:14 Nasal Cannula 4 05/31/23 13:07 05/31/23 12:35 Nasal Cannula 4 05/31/23 12:35 Nasal Cannula 2 05/31/23 12:35 Nasal Cannula 4 05/31/23 12:10 Room Air Laboratory Results Short CBC 05/31/23 Range/Units 12:46 WBC 12.11 H (4.8-10.8) K/ul Hgb 16.0 (12.0-16.0) g/dl Hct 47.8 H (37.0-47.0) % Plt Count 267 (130-400) K/uL BMP 05/31/23 12:46 Sodium 139 Potassium 3.7 Chloride 101 Carbon Dioxide 27 BUN 23 Creatinine 0.96 Glucose 153 H Calcium 9.5 Liver Function 05/31/23 Range/Units 12:46 Total Bilirubin 0.8 (0.2-1.0) mg/dl AST 28 (13-39) U/L ALT 23 (7-52) U/L Alkaline Phosphatase 101 (34-104) U/L Albumin 3.9 (3.4-5.0) gm/dl Diagnostic Findings Chest X-Ray 05/31/23 12:15 XR chest 1V portable HISTORY: 83 years-old Female Dyspnea acute shortness of breath COMPARISON: 02/08/2021 TECHNIQUE: AP view of the chest FINDINGS: Cardiac silhouette is enlarged. Sternotomy. Emphysema with chronic fibrotic changes. Perivascular congestion with progressive interstitial coarsening, most pronounced in the right lung. No pneumothorax or large pleural effusion identified. Degenerative changes of the shoulders and spine. IMPRESSION: 1. Cardiomegaly with pulmonary vascular congestion. 2. Emphysema with chronic fibrotic changes. Progressive interstitial coarsening which is most pronounced in the right lung compared to the prior study may represent worsening fibrosis versus asymmetric pulmonary edema or less likely an interstitial pneumonia. ACT 112: Negative or not required by law. The above report was generated using voice recognition software. It may contain grammatical, syntax or spelling errors. Electronically signed by: Ivan Schulte M.D. 05/31/2023 3:14 PM Chest CTA 05/31/23 16:02 CT ANGIOGRAPHY OF THE CHEST, PULMONARY EMBOLUS PROTOCOL CLINICAL HISTORY: Shortness of breath. Evaluate for pulmonary embolus. COMPARISON STUDY: Chest radiograph performed earlier today. TECHNIQUE: Following IV administration of 122 mL of Optiray, helical axial images of the chest were obtained utilizing the pulmonary embolus protocol. Maximal intensity projections and sagittal and coronal reformats were viewed on an independent 3D workstation. IV contrast was administered without complication. Automated exposure control was utilized for the study. A dose lowering technique was utilized adhering to the principles of ALARA. FINDINGS: No pulmonary emboli are identified. There is no thoracic aortic dissection. There are median sternotomy wires and postoperative findings from bypass grafting. There is mild cardiomegaly and moderate coronary artery catheterization. No pericardial effusion is noted. There is no pneumothorax. There is a small right pleural effusion. Lungs are suboptimally assessed due to respiratory motion. Multifocal patchy airspace opacities within the right lung are noted. There are also mild airspace opacities within the lingula. Moderate emphysema is present. There is mild interlobular septal thickening. Mildly enlarged right hilar lymph nodes are noted. Index node on image 115 of 255 measures 1.5 x 0.1 cm. A few hypodense hepatic lesions are unchanged since prior abdominal CT. These are benign. IMPRESSION: 1. No pulmonary emboli identified. 2. Multifocal bilateral pulmonary airspace opacities, greater within the right lung. The findings favor multifocal pneumonia. A follow-up chest CT in 2 months to ensure resolution is recommended. 3. Mildly enlarged right hilar lymph nodes. These are likely reactive but can be assessed on follow-up CT. 4. Small right pleural effusion. 5. Emphysema. 6. Suspected mild interstitial pulmonary edema. ACT 112: Negative or not required by law. Electronically signed by: Darrell Canales M.D. 05/31/2023 4:58 PM ECG Additional Comments: EKG reviewied: sinus tachycardia at 117. Septal infarct Abnormal ECG Supervising Physician Co-Signing Physician Notes Attending addendum: The patient was seen and examined in the emergency room in presence of the daughter She was brought in with increasing shortness of breath, cough with [place] phlegm and feverish feeling since Tuesday last Denies any leg swelling, any palpitation or chest pain, any abdominal pain nausea and or vomiting She has not been smoking since Tuesday On examination Lying in bed with minimal distress due to shortness of breath Hemodynamically stable with tachycardia of around 119 Chest-decreased breath sounds bilaterally with occasional crackles at the bases HeartS1-S2, prominent heart sound with 2/6 ESM over precordium Abdomenbenign Extremities no edema 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 Generally weak no focal neurodeficit Her admission labs, EKG and imaging studies reviewed Long history of smoking and has COPD with possible exacerbation secondary to bronchitis and/or pneumonitis To rule out pulmonary embolism We will start antibiotic and hold of a steroid for now Agree with assessment and plan as outlined above by SIENNA Dee Dr
--- NOTE | 2023-05-31 15:16 | XRay Report ---
XR chest 1V portable HISTORY: 83 years-old Female Dyspnea acute shortness of breath COMPARISON: 02/08/2021 TECHNIQUE: AP view of the chest FINDINGS: Cardiac silhouette is enlarged. Sternotomy. Emphysema with chronic fibrotic changes. Perivascular con gestion with progressive interstitial coarsening, most pronounced in the right lung. No pneumothorax or large pleural effusion identified. Degenerative changes of the shoulders and spine. IMPRESSION: 1. Cardiomegaly with pulmonary vascular congestion. 2. Emphysema with chronic fibrotic changes. Progressive interstitial coarsening which is most pronoun [place] in the right lung compared to the prior study may represent worsening fibrosis versus asymmetric pulmonary edema or less likely an interstitial pneumonia. ACT 112: Negative or not required by law. The above report was generated using voice recognition software. It may contain grammatical, syntax o r spelling errors. Electronically signed by: Ivan Schulte M.D. 05/31/2023 3:14 PM
[2023-05-31 15:58] LABS: Troponin I High Sensitivity 30.5 pg/ml (0-14)
--- NOTE | 2023-05-31 16:00 | Electrocardiogram Report ---
Test Reason : Blood Pressure : / mmHG Vent. Rate : 117 BPM Atrial Rate : 117 BPM P-R Int : 152 ms QRS Dur : 072 ms QT Int : 314 ms P-R-T Axes : 067 043 053 degrees QTc Int : 438 ms Sinus tachycardia Septal infarct (cited on or before 18-JUL-2013) Abnormal ECG When compared with ECG of 08-FEB-2021 16:50, Premature atrial complexes are no longer Present Vent. rate has increased BY 43 BPM Non-specific change in ST segment in Anterior leads Confirmed by Terell Doyle ([id number]) on 05/31/2023 4:00:32 PM Referred By: Sarabjit Arana Confirmed By:Terell Doyle
[2023-05-31] MEDS ORDERED: OPTIRAY 320 500ml IV ONE (16:39)
--- NOTE | 2023-05-31 17:00 | CT Scan Report ---
CT ANGIOGRAPHY OF THE CHEST, PULMONARY EMBOLUS PROTOCOL CLINICAL HISTORY: Shortness of breath. Evaluate for pulmonary embolus. COMPARISON STUDY: Chest radiograph performed earlier today. TECHNIQUE: Following IV administration of 122 mL of Optiray, helical axial images of the chest were o btained utilizing the pulmonary embolus protocol. Maximal intensity projections and sagittal and cor onal reformats were viewed on an independent 3D workstation. IV contrast was administered without co mplication. Automated exposure control was utilized for the study. A dose lowering technique was ut ilized adhering to the principles of ALARA. FINDINGS: No pulmonary emboli are identified. There is no thoracic aortic dissection. There are medi an sternotomy wires and postoperative findings from bypass grafting. There is mild cardiomegaly and m oderate coronary artery catheterization. No pericardial effusion is noted. There is no pneumothorax. There is a small right pleural effusion. Lungs are suboptimally assessed due to respiratory motion. M ultifocal patchy airspace opacities within the right lung are noted. There are also mild airspace opa cities within the lingula. Moderate emphysema is present. There is mild interlobular septal thickenin g. Mildly enlarged right hilar lymph nodes are noted. Index node on image 115 of 255 measures 1.5 x 0 .1 cm. A few hypodense hepatic lesions are unchanged since prior abdominal CT. These are benign. IMPRESSION: 1. No pulmonary emboli identified. 2. Multifocal bilateral pulmonary airspace opacities, greater within the right lung. The findings fav or multifocal pneumonia. A follow-up chest CT in 2 months to ensure resolution is recommended. 3. Mildly enlarged right hilar lymph nodes. These are likely reactive but can be assessed on follow-u p CT. 4. Small right pleural effusion. 5. Emphysema. 6. Suspected mild interstitial pulmonary edema. ACT 112: Negative or not required by law. Electronically signed by: Darrell Canales M.D. 05/31/2023 4:58 PM
[2023-05-31] MEDS ORDERED: METOPROLOL TARTRATE 1 MG/ML VIAL IV ONE (17:01)
[2023-05-31] MEDS ORDERED: METOPROLOL TARTRATE 1 MG/ML VIAL IV STA (17:02)
[2023-05-31] MEDS ORDERED: ONDANSETRON INJ 2 MG/ML 2 ML VIAL IV PRN (17:05)
[2023-05-31] MEDS ORDERED: ACETAMINOPHEN 325 MG TAB PO PRN (17:05)
[2023-05-31] MEDS ORDERED: POLYETHYLENE (MIRALAX) 17 GM PACK PO PRN (17:05)
[2023-05-31] MEDS ORDERED: FAMOTIDINE 40 MG TABLET PO PRN (17:05)
[2023-05-31] MEDS ORDERED: METOPROLOL TARTRATE 25 MG TAB PO ONE (17:30)
[2023-05-31] MEDS ORDERED: Heparin IV Adult Wt-Based Low-Dose WITH Bolus Protocol IV SCH (18:00)
[2023-05-31] MEDS ORDERED: HEPARIN SOD (PORCINE) 1000 UNIT/ML IV ONE (18:00)
[2023-05-31] MEDS: HEPARIN SODIUM/DEXTROSE 25,000 UNITS/500 ML BAG IV SCH (18:27)
[2023-05-31] MEDS: DOXYCYCLINE HYCLATE 100 MG in DEXTROSE 5% MINI-B 100 ML IV SCH (19:20)
[2023-05-31] MEDS: ALBUT/IPRATROP 3MG/0.5MG NEB 3 ML VIAL NEB SCH ×2 (19:58→22:20)
[2023-05-31] MEDS: PANTOprazole 40 MG TAB PO SCH (20:53)
[2023-05-31] MEDS: ATORVASTATIN 40 MG TAB PO SCH (20:53)
[2023-05-31] MEDS: CEROVITE ADV FORMULA TAB PO SCH (20:53)
[2023-05-31] MEDS ORDERED: ENOXAPARIN INJ 30 MG/0.3 ML SYR SQ SCH (21:00)
[2023-06-01 01:38] LABS: Partial Thromboplastin Ratio 1.3; Partial Thromboplastin Time 36.1 Seconds (21.0-31.0)
[2023-06-01] MEDS: ALBUT/IPRATROP 3MG/0.5MG NEB 3 ML VIAL NEB SCH ×6 (03:03→22:23)
[2023-06-01] MEDS: DOXYCYCLINE HYCLATE 100 MG in DEXTROSE 5% MINI-B 100 ML IV SCH ×2 (05:30→18:16)
[2023-06-01 06:28] LABS: Hematocrit (blood only) 43.7 % (37.0-47.0); Hemoglobin 14.6 g/dl (12.0-16.0); Mean Corpuscular Hemoglobin 28.9 pg (25.0-34.0); Mean Corpuscular Hgb Conc 33.4 g/dL (32.0-36.0); Mean Corpuscular Volume 86.4 fL (80.0-100.0); Mean Platelet Volume 11.2 fL (9.4-12.4); Platelet Count 255 K/uL (130-400); RDW Standard Deviation 47.8 fL (36.4-46.3); Red Blood Count 5.06 M/uL (4.20-5.40)
[2023-06-01 06:34] LABS: BUN Creatinine Ratio 27.3 (10-20); Calcium 8.8 mg/dl (8.6-10.3); Creatinine Clr Calc Pharmacy 34.1 ml/min; Est GFR (African American) 60.6 ml/min; Est GFR (Non-African American) 52.3 ml/min; Magnesium 2.1 mg/dl (1.7-2.4); Potassium 3.9 mmol/L (3.5-5.1)
[2023-06-01 06:49] LABS: Thyroid Stimulating Hormone 0.33 uIu/ml (0.300-4.500)
[2023-06-01] MEDS: ASPIRIN 81 MG ECTAB PO SCH (08:15)
[2023-06-01] MEDS: PANTOprazole 40 MG TAB PO SCH ×2 (08:15→21:49)
[2023-06-01] MEDS: CEROVITE ADV FORMULA TAB PO SCH ×2 (08:15→21:49)
[2023-06-01] MEDS: cefTRIAXone SODIUM 2,000 MG in DEXTROSE 5 % MINI-B 50 ML IV SCH (08:21)
[2023-06-01] MEDS: CHOLECALCIFEROL 1,000 UNITS 25 MCG TAB PO SCH (08:21)
[2023-06-01] MEDS ORDERED: ATENOLOL 25 MG TABLET PO SCH (09:00)
[2023-06-01] MEDS ORDERED: METOPROLOL TARTRATE 25 MG TAB PO SCH (09:00)
--- NOTE | 2023-06-01 09:31 | Hospitalist Progress Note ---
Date of Service June 01, 2023 Assessment & Plan (1) Acute hypoxic respiratory failure: (2) Multifocal pneumonia: Plan: This is an 83yo F with a PMH of HTN, CAD, HLD, CKD III, ongoing tobacco use and other medical problems listed below who presents with worsening SOB x 3 days and was found to have acute hypoxic respiratory failure in setting of multifocal pneumonia. SOB and cough x 3 days, sent in by PCP due to hypoxia at 84% on room air in office(not on home O2) Afebrile, but meeting sepsis criteria with WBC 12, HR 110s, lactate 2.1 -> 1.3, procal 3.60 PCR negative for covid, RSV, flu CT chest obtained for better visualization, r/o PE - no pulmonary emboli identified. Multifocal bilateral pulmonary airspace opacities, greater within the right lung. The findings favor multifocal pneumonia. A follow-up chest CT in 2 months to ensure resolution is recommended. Suspected mild interstitial pulmonary edema. Continue Rocephin, doxycycline for CAP coverage Initially given IV Decadron in ED, no indication to continue at this time, re- evaluate in AM [facility] QIDR, incentive spirometry, continue supplemental O2 and wean as tolerated (3) Atrial fibrillation with rapid ventricular response: Plan: Initially presented in sinus tachycardia HR 110s in setting of PNA, ruled out PE Code purple called around 1700 day of admission- HR in 150s with repeat EKG showing new onset A fib with RVR, likely precipitated by PNA and IV Decadron as above Given 2.5mg IV Lopressor x 1 with decreased HR to 100 Starting Lopressor 25mg PO BID with hold parameters 2D echo, magnesium level 2.0, cardiology consulted Started IV heparin for now new onset (4) Tobacco abuse: Plan: Smoking 1/2 ppd but hasn't in 1 week due to feeling poorly, 50 pack years. Cessation education. Offered nicotine patch but declined (5) CAD (coronary artery disease): Plan: Chronic; stable. Continue aspirin, statin, atenolol held as lopressor started for afib (6) Hypertension: Plan: Chronic; stable (7) Hyperlipidemia: Plan: Chronic; stable. Continue statin (8) CKD (chronic kidney disease), stage III: Plan: Cr 0.96 - stable. Monitor with daily BMP DVT Ppx: IV heparin as above Code status: FULL PCP: Dr. Arana Dispo: Admit to PCU Admission and Anticipated Discharge Date Admission Date: May 31, 2023 Subjective Pt seen in follow up of hypoxia, multifocal pna, (hypoxic at PCP office), in ER went into afib w/ RVR Blood cultx pending, procalcitonin elevated at 3.6 Currently laying in bed, in NAD, overall feeling better. Daughter at the bedside. No chest pain or shortness of breath at this time. No abd. pain, n/v Review of Systems Review of Systems: All systems reviewed & are unremarkable except as noted in Subjective Physical Exam Physical Exam: General Appearance:WD/WN, in NAD, on suppl. O2 Head: normocephalic, atraumatic Eyes:normal inspection, PERRL, conjunctivae normal, anicteric sclerae ENT: external ear and nose normal, oropharynx normal Neck: normal visual inspection, trachea midline Respiratory:normal respiratory effort, diminished lung sounds throughout, mild bibasilar rales, no wheeze or rhonchi. Cardiovascular: irregular, no BLE edema. Vessels: no JVD Chest: normal inspection of chest Abdomen/GI: normal bowel sounds, soft, nontender Extremities/Musculoskeletal:moves extremities Neurologic: PERRL, EOMI, no face palsy, no dysarthria, moves all extremities Psychiatric:A+Ox3, euthymic affect Skin: no rashes, warm/dry Results & Data Results & Data Vital Signs (Past 12 Hours) Vital Signs Temp Pulse Pulse Resp BP Pulse Ox O2 Del Method 06/01/23 07:25 36.7 C 88 19 137/71 92 Nasal Cannula 06/01/23 07:02 79 20 94 Nasal Cannula 06/01/23 00:00 Nasal Cannula 06/01/23 04:00 36.4 C L 73 18 110/71 94 Nasal Cannula 05/31/23 23:35 103 H 06/01/23 03:01 82 20 93 Nasal Cannula 05/31/23 23:35 36.7 C 98 H 20 146/75 H 90 Nasal Cannula 05/31/23 22:20 86 20 94 Nasal Cannula O2 Flow Rate 06/01/23 07:25 2 06/01/23 07:02 3 06/01/23 00:00 4 06/01/23 04:00 4 05/31/23 23:35 06/01/23 03:01 4 05/31/23 23:35 4 05/31/23 22:20 4 Laboratory Results 06/01/23 06/01/23 06/01/23 Range/Units 05:36 05:36 00:37 WBC 10.60 (4.8-10.8) K/ul RBC 5.06 (4.20-5.40) M/uL Hgb 14.6 (12.0-16.0) g/dl Hct 43.7 (37.0-47.0) % MCV 86.4 (80.0-100.0) fL MCH 28.9 (25.0-34.0) pg MCHC 33.4 (32.0-36.0) g/dL RDW Std Deviation 47.8 H (36.4-46.3) fL RDW Coeff of Essie 15.0 H (11.5-14.5) % Plt Count 255 (130-400) K/uL MPV 11.2 (9.4-12.4) fL Immature Gran % (Auto) % Neut % (Auto) % Lymph % (Auto) % [place] % (Auto) % Eos % (Auto) % Baso % (Auto) % Neut # (Auto) (1.40-6.50) K/uL Lymph # (Auto) (1.20-3.40) K/uL [place] # (Auto) (0.11-0.59) K/uL Eos # (Auto) (0.00-0.50) K/uL Baso # (Auto) (0.00-0.20) K/uL Immature Gran # (Auto) (0.01-0.20) K/uL Polychromasia APTT 36.1 H (21.0-31.0) Seconds PTT Ratio 1.3 VBG pH (7.36-7.41) VBG pCO2 (38-50) mmHg VBG pO2 mmHg VBG HCO3 mmol/L VBG O2 Saturation % VBG Base Excess mEq/L Methemoglobin (0.0-1.5) % Sodium 139 (136-145) mmol/L Potassium 3.9 (3.5-5.1) mmol/L Chloride 107 (98-107) mmol/L Carbon Dioxide 25 (21-32) mmol/L Anion Gap 7 (3-11) BUN 27 H (6-23) mg/dl Creatinine 0.99 (0.6-1.2) mg/dl Est Cr Clr Drug Dosing 34.1 ml/min Est GFR ( Amer) 60.6 ml/min Est GFR (Non-Af Amer) 52.3 ml/min BUN/Creatinine Ratio 27.3 H (10-20) Glucose 156 H (70-99(Fasting)) mg/dl Lactate (0.4-2.0) mmol/L Calcium 8.8 (8.6-10.3) mg/dl Magnesium 2.1 (1.7-2.4) mg/dl Total Bilirubin (0.2-1.0) mg/dl AST (13-39) U/L ALT (7-52) U/L Alkaline Phosphatase (34-104) U/L Troponin I High Sens (0-14) pg/ml B-Natriuretic Peptide (0-100) pg/ml Total Protein (6.0-8.3) gm/dl Albumin (3.4-5.0) gm/dl Globulin (2.5-4.0) gm/dl Albumin/Globulin Ratio (0.9-2) Procalcitonin (0-0.5) ng/ml TSH 0.330 (0.300-4.500) uIu/ml SARS-CoV-2 (PCR) (Negative) Influenza Type A (PCR) (Neg) Influenza Type B (PCR) (Neg) RSV (RT-PCR) (Neg) 05/31/23 05/31/23 05/31/23 Range/Units 15:20 15:20 13:57 WBC (4.8-10.8) K/ul RBC (4.20-5.40) M/uL Hgb (12.0-16.0) g/dl Hct (37.0-47.0) % MCV (80.0-100.0) fL MCH (25.0-34.0) pg MCHC (32.0-36.0) g/dL RDW Std Deviation (36.4-46.3) fL RDW Coeff of Essie (11.5-14.5) % Plt Count (130-400) K/uL MPV (9.4-12.4) fL Immature Gran % (Auto) % Neut % (Auto) % Lymph % (Auto) % [place] % (Auto) % Eos % (Auto) % Baso % (Auto) % Neut # (Auto) (1.40-6.50) K/uL Lymph # (Auto) (1.20-3.40) K/uL [place] # (Auto) (0.11-0.59) K/uL Eos # (Auto) (0.00-0.50) K/uL Baso # (Auto) (0.00-0.20) K/uL Immature Gran # (Auto) (0.01-0.20) K/uL Polychromasia APTT (21.0-31.0) Seconds PTT Ratio VBG pH 7.39 (7.36-7.41) VBG pCO2 47 (38-50) mmHg VBG pO2 27 mmHg VBG HCO3 29 mmol/L VBG O2 Saturation < 60.0 % VBG Base Excess 2.8 mEq/L Methemoglobin (0.0-1.5) % Sodium (136-145) mmol/L Potassium (3.5-5.1) mmol/L Chloride (98-107) mmol/L Carbon Dioxide (21-32) mmol/L Anion Gap (3-11) BUN (6-23) mg/dl Creatinine (0.6-1.2) mg/dl Est Cr Clr Drug Dosing ml/min Est GFR ( Amer) ml/min Est GFR (Non-Af Amer) ml/min BUN/Creatinine Ratio (10-20) Glucose (70-99(Fasting)) mg/dl Lactate 1.3 (0.4-2.0) mmol/L Calcium (8.6-10.3) mg/dl Magnesium 2.0 (1.7-2.4) mg/dl Total Bilirubin (0.2-1.0) mg/dl AST (13-39) U/L ALT (7-52) U/L Alkaline Phosphatase (34-104) U/L Troponin I High Sens 30.5 H (0-14) pg/ml B-Natriuretic Peptide (0-100) pg/ml Total Protein (6.0-8.3) gm/dl Albumin (3.4-5.0) gm/dl Globulin (2.5-4.0) gm/dl Albumin/Globulin Ratio (0.9-2) Procalcitonin (0-0.5) ng/ml TSH (0.300-4.500) uIu/ml SARS-CoV-2 (PCR) (Negative) Influenza Type A (PCR) (Neg) Influenza Type B (PCR) (Neg) RSV (RT-PCR) (Neg) 05/31/23 05/31/23 05/31/23 Range/Units 13:57 13:57 12:50 WBC (4.8-10.8) K/ul RBC (4.20-5.40) M/uL Hgb (12.0-16.0) g/dl Hct (37.0-47.0) % MCV (80.0-100.0) fL MCH (25.0-34.0) pg MCHC (32.0-36.0) g/dL RDW Std Deviation (36.4-46.3) fL RDW Coeff of Essie (11.5-14.5) % Plt Count (130-400) K/uL MPV (9.4-12.4) fL Immature Gran % (Auto) % Neut % (Auto) % Lymph % (Auto) % [place] % (Auto) % Eos % (Auto) % Baso % (Auto) % Neut # (Auto) (1.40-6.50) K/uL Lymph # (Auto) (1.20-3.40) K/uL [place] # (Auto) (0.11-0.59) K/uL Eos # (Auto) (0.00-0.50) K/uL Baso # (Auto) (0.00-0.20) K/uL Immature Gran # (Auto) (0.01-0.20) K/uL Polychromasia APTT (21.0-31.0) Seconds PTT Ratio VBG pH (7.36-7.41) VBG pCO2 (38-50) mmHg VBG pO2 mmHg VBG HCO3 mmol/L VBG O2 Saturation % VBG Base Excess mEq/L Methemoglobin < 0.7 (0.0-1.5) % Sodium (136-145) mmol/L Potassium (3.5-5.1) mmol/L Chloride (98-107) mmol/L Carbon Dioxide (21-32) mmol/L Anion Gap (3-11) BUN (6-23) mg/dl Creatinine (0.6-1.2) mg/dl Est Cr Clr Drug Dosing ml/min Est GFR ( Amer) ml/min Est GFR (Non-Af Amer) ml/min BUN/Creatinine Ratio (10-20) Glucose (70-99(Fasting)) mg/dl Lactate 2.1 H* (0.4-2.0) mmol/L Calcium (8.6-10.3) mg/dl Magnesium (1.7-2.4) mg/dl Total Bilirubin (0.2-1.0) mg/dl AST (13-39) U/L ALT (7-52) U/L Alkaline Phosphatase (34-104) U/L Troponin I High Sens (0-14) pg/ml B-Natriuretic Peptide 182 H (0-100) pg/ml Total Protein (6.0-8.3) gm/dl Albumin (3.4-5.0) gm/dl Globulin (2.5-4.0) gm/dl Albumin/Globulin Ratio (0.9-2) Procalcitonin (0-0.5) ng/ml TSH (0.300-4.500) uIu/ml SARS-CoV-2 (PCR) (Negative) Influenza Type A (PCR) (Neg) Influenza Type B (PCR) (Neg) RSV (RT-PCR) (Neg) 05/31/23 05/31/23 05/31/23 Range/Units 12:46 12:46 12:46 WBC 12.11 H (4.8-10.8) K/ul RBC 5.49 H (4.20-5.40) M/uL Hgb 16.0 (12.0-16.0) g/dl Hct 47.8 H (37.0-47.0) % MCV 87.1 (80.0-100.0) fL MCH 29.1 (25.0-34.0) pg MCHC 33.5 (32.0-36.0) g/dL RDW Std Deviation 50.1 H (36.4-46.3) fL RDW Coeff of Essie 15.7 H (11.5-14.5) % Plt Count 267 (130-400) K/uL MPV 11.2 (9.4-12.4) fL Immature Gran % (Auto) 0.3 % Neut % (Auto) 84.6 % Lymph % (Auto) 2.6 % [place] % (Auto) 11.5 % Eos % (Auto) 0.3 % Baso % (Auto) 0.7 % Neut # (Auto) 10.23 H (1.40-6.50) K/uL Lymph # (Auto) 0.32 L (1.20-3.40) K/uL [place] # (Auto) 1.39 H (0.11-0.59) K/uL Eos # (Auto) 0.04 (0.00-0.50) K/uL Baso # (Auto) 0.09 (0.00-0.20) K/uL Immature Gran # (Auto) 0.04 (0.01-0.20) K/uL Polychromasia 1+ APTT (21.0-31.0) Seconds PTT Ratio VBG pH (7.36-7.41) VBG pCO2 (38-50) mmHg VBG pO2 mmHg VBG HCO3 mmol/L VBG O2 Saturation % VBG Base Excess mEq/L Methemoglobin (0.0-1.5) % Sodium 139 (136-145) mmol/L Potassium 3.7 (3.5-5.1) mmol/L Chloride 101 (98-107) mmol/L Carbon Dioxide 27 (21-32) mmol/L Anion Gap 11 (3-11) BUN 23 (6-23) mg/dl Creatinine 0.96 (0.6-1.2) mg/dl Est Cr Clr Drug Dosing 31.7 ml/min Est GFR ( Amer) 62.9 ml/min Est GFR (Non-Af Amer) 54.3 ml/min BUN/Creatinine Ratio 24.0 H (10-20) Glucose 153 H (70-99(Fasting)) mg/dl Lactate (0.4-2.0) mmol/L Calcium 9.5 (8.6-10.3) mg/dl Magnesium (1.7-2.4) mg/dl Total Bilirubin 0.8 (0.2-1.0) mg/dl AST 28 (13-39) U/L ALT 23 (7-52) U/L Alkaline Phosphatase 101 (34-104) U/L Troponin I High Sens 35.2 H (0-14) pg/ml B-Natriuretic Peptide (0-100) pg/ml Total Protein 7.8 (6.0-8.3) gm/dl Albumin 3.9 (3.4-5.0) gm/dl Globulin 3.9 (2.5-4.0) gm/dl Albumin/Globulin Ratio 1.0 (0.9-2) Procalcitonin 3.60 H (0-0.5) ng/ml TSH (0.300-4.500) uIu/ml SARS-CoV-2 (PCR) (Negative) Influenza Type A (PCR) (Neg) Influenza Type B (PCR) (Neg) RSV (RT-PCR) (Neg) 05/31/23 Range/Units 12:40 WBC (4.8-10.8) K/ul RBC (4.20-5.40) M/uL Hgb (12.0-16.0) g/dl Hct (37.0-47.0) % MCV (80.0-100.0) fL MCH (25.0-34.0) pg MCHC (32.0-36.0) g/dL RDW Std Deviation (36.4-46.3) fL RDW Coeff of Essie (11.5-14.5) % Plt Count (130-400) K/uL MPV (9.4-12.4) fL Immature Gran % (Auto) % Neut % (Auto) % Lymph % (Auto) % [place] % (Auto) % Eos % (Auto) % Baso % (Auto) % Neut # (Auto) (1.40-6.50) K/uL Lymph # (Auto) (1.20-3.40) K/uL [place] # (Auto) (0.11-0.59) K/uL Eos # (Auto) (0.00-0.50) K/uL Baso # (Auto) (0.00-0.20) K/uL Immature Gran # (Auto) (0.01-0.20) K/uL Polychromasia APTT (21.0-31.0) Seconds PTT Ratio VBG pH (7.36-7.41) VBG pCO2 (38-50) mmHg VBG pO2 mmHg VBG HCO3 mmol/L VBG O2 Saturation % VBG Base Excess mEq/L Methemoglobin (0.0-1.5) % Sodium (136-145) mmol/L Potassium (3.5-5.1) mmol/L Chloride (98-107) mmol/L Carbon Dioxide (21-32) mmol/L Anion Gap (3-11) BUN (6-23) mg/dl Creatinine (0.6-1.2) mg/dl Est Cr Clr Drug Dosing ml/min Est GFR ( Amer) ml/min Est GFR (Non-Af Amer) ml/min BUN/Creatinine Ratio (10-20) Glucose (70-99(Fasting)) mg/dl Lactate (0.4-2.0) mmol/L Calcium (8.6-10.3) mg/dl Magnesium (1.7-2.4) mg/dl Total Bilirubin (0.2-1.0) mg/dl AST (13-39) U/L ALT (7-52) U/L Alkaline Phosphatase (34-104) U/L Troponin I High Sens (0-14) pg/ml B-Natriuretic Peptide (0-100) pg/ml Total Protein (6.0-8.3) gm/dl Albumin (3.4-5.0) gm/dl Globulin (2.5-4.0) gm/dl Albumin/Globulin Ratio (0.9-2) Procalcitonin (0-0.5) ng/ml TSH (0.300-4.500) uIu/ml SARS-CoV-2 (PCR) NEGATIVE (Negative) Influenza Type A (PCR) Negative (Neg) Influenza Type B (PCR) Negative (Neg) RSV (RT-PCR) Negative (Neg) Medications Administered Current Inpatient Medications Acetaminophen (Acetaminophen 325 Mg Tab) 650 mg PO Q4H PRN PRN Reason: Pain or Fever Stop: 06/30/23 17:04 Albuterol (Albut/Ipratrop 3mg/0.5mg Neb 3 Ml Vial) 3 ml NEB Q4R [facility]; Protocol Stop: 06/30/23 18:59 Last Admin: 06/01/23 07:01 Dose: 3 ml Aspirin (Aspirin 81 Mg Ectab) 81 mg PO QAM [facility] Stop: 07/01/23 08:59 Last Admin: 06/01/23 08:15 Dose: 81 mg Atenolol (Atenolol 25 Mg Tablet) 25 mg PO QAM [facility] Stop: 07/01/23 08:59 Atorvastatin Calcium (Atorvastatin 40 Mg Tab) 40 mg PO HS [facility] Stop: 06/30/23 20:59 Last Admin: 05/31/23 20:53 Dose: 40 mg Famotidine (Famotidine 40 Mg Tablet) 40 mg PO DAILY PRN PRN Reason: gastric upset Stop: 06/30/23 17:04 Guaifenesin (Guaifenesin 600 Mg Tabcr) 600 mg PO Q12 [facility] Stop: 07/01/23 09:19 Ceftriaxone Sodium 2,000 mg/ (Dextrose) 50 mls @ 100 mls/hr IV Q24H [facility]; Protocol Stop: 06/07/23 09:29 Last Admin: 06/01/23 08:21 Dose: 100 mls/hr Doxycycline Hyclate 100 mg/ (Dextrose) 100 mls @ 50 mls/hr IV Q12H [facility] Stop: 06/07/23 17:04 Last Infusion: 06/01/23 07:52 Dose: Infused Heparin Sodium/Dextrose (Heparin Sodium/Dextrose) 25,000 units in 500 mls @ 12 mls/hr IV .Q24H [facility]; Protocol Stop: 06/30/23 17:59 Last Titration: 06/01/23 03:58 Dose: 600 units/hr, 12 mls/hr Metoprolol Tartrate (Metoprolol Tartrate 25 Mg Tab) 25 mg PO BID [facility] Stop: 07/01/23 08:59 Last Admin: 06/01/23 08:15 Dose: 25 mg Multivitamins/Minerals (Cerovite Adv Formula Tab) 1 tab PO BID [facility] Stop: 06/30/23 20:59 Last Admin: 06/01/23 08:15 Dose: 1 tab Ondansetron HCl (Ondansetron Inj 2 Mg/Ml 2 Ml Vial) 4 mg IV Q6H PRN PRN Reason: Nausea Stop: 06/30/23 17:04 Pantoprazole Sodium (Pantoprazole 40 Mg Tab) 40 mg PO BID [facility] Stop: 06/30/23 20:59 Last Admin: 06/01/23 08:15 Dose: 40 mg Polyethylene Glycol (Polyethylene (Miralax) 17 Gm Pack) 17 gm PO DAILY PRN PRN Reason: Constipation Stop: 11/09/23 17:04 Vitamin D (Cholecalciferol 1,000 Units 25 Mcg Tab) 1,000 units PO MoWeFr@0900 [facility] Stop: 07/01/23 08:59 Last Admin: 06/01/23 08:21 Dose: Not Given
[2023-06-01 10:42] LABS: Partial Thromboplastin Ratio 1.2; Partial Thromboplastin Time 34.5 Seconds (21.0-31.0)
[2023-06-01] MEDS ORDERED: HEPARIN SOD (PORCINE) 1000 UNIT/ML IV ONE (11:29)
[2023-06-01] MEDS: guaiFENesin 600 MG TABCR PO SCH ×2 (11:39→21:49)
--- NOTE | 2023-06-01 12:20 | Cardiology Consultation ---
Date of Consultation June 01, 2023 Assessment & Plan (1) Atrial fibrillation with rapid ventricular response: (2) Acute hypoxic respiratory failure: (3) Multifocal pneumonia: (4) Elevated troponin: Plan Impression: 83-year-old female with new onset atrial fibrillation with RVR in the setting of acute hypoxic respiratory failure secondary to multifocal pneumonia. Echo with borderline hyperdynamic LV systolic function, no regional WMA or significant valvular disease. EKG without acute ST segment changes. HS troponins mildly elevated and flat- likely in the setting of acute illness and demand/AFIB RVR. Low likelihood for ACS. Plan: PAF: Episodes of PAF yesterday evening-- very symptomatic with elevated sustained rates. Converted to ST on her own after IV Lopressor, now maintaining ST on tele. Elevated heart rates/PAF driven my acute illness with pneumonia-- Discontinue metoprolol tartrate and start metoprolol succinate 25 mg BID- first dose now. Elevated CHADSVASC score of 4 (age 1, female, CAD)-- continue IV heparin for stroke prevention. Consider transition to DOAC at discharge. Monitor renal function and electrolytes- recommend goal Potassium of 4.0 and mag of 2.0. PNA: SPO2 stable with supplemental o2 Supportive treatment of pneumonia per primary team. Wean O2 as tolerated Case discussed with Dr. Garrett- will follow. Supervising Physician Co-Signing Physician Notes Patient seen and examined, chart, medications, telemetry reviewed. Full assessment and plan as noted above Patient improving with treatment of exacerbating pneumonia. Transient atrial fibrillation yesterday with return to sinus rhythm Beta-cynthia and anticoagulation added We will follow as clinical course progresses History of Present Illness Reason for Consultation: PAF RVR Requesting Physician: Edouard gambino Attending Physician: Trev De Santiago MD History of Present Illness 83-year-old female who presented to [facility] emergency department yesterday due to progressive shortness of breath with symptoms starting last Tuesday. Found to have acute hypoxic respiratory failure in setting of multifocal pneumonia--treated with supplemental oxygen therapy, antibiotics, DuoNebs, and IV steroids. Respiratory panel negative for COVID, RSV, and flu. CTA of the chest negative for PE. Upon initial presentation she was tachycardic with heart rates in the 110s. Around 5 PM last night she became tachycardic in the 150s with EKG revealing atrial fibrillation with RVR- patient was significantly symptomatic with chest pain, left arm pain and jaw pain. Melisa garay was called-- Treated with IV Lopressor and started on IV heparin. Patient converted to SR on her own, but continued to have intermittent paroxysms of atrial fibrillation throughout the evening. Transitioned to Metoprolol tartrate 25 mg BID. Tele today revealing ST with PACs with rates in the low 100s. Asymptomatic at this time. Echocardiogram showed a borderline hyperdynamic LVEF of 65 to 70% with normal wall motion. Heart rates were tachycardic during the exam (sinus), moderate concentric LVH. Moderate aortic sclerosis without stenosis. Upon entrance into the room patient resting in bed. No acute distress- No chest pain. Has ongoing MEYERS, using supplemental o2 (2L). No lower extremity edema. Main concern is getting something to eat. Past medical history: CAD, [place] [facility] [place] artery to [place]AD, SVG to first OM, vein graft to RCA) Hypertension Dyslipidemia Carotid disease Chronic tobacco use, 1/2 ppd CKD stage III Chronic lower extremity peripheral edema Hx of PUD and GIB (requiring blood tx) in the setting of Advil use, ~2020 Allergies Allergy/AdvReac Type Severity Reaction Status Date / Time Sulfa (Sulfonamide Allergy Unknown HIVES Verified 02/09/21 08:37 Antibiotics) varenicline [From Chantix] AdvReac Depression Verified 02/09/21 08:37 Home Medications Medication Instructions Recorded Confirmed Type atenolol 25 mg tablet 25 mg PO QAM 05/20/18 05/31/23 History atorvastatin 40 mg tablet (Lipitor) 40 mg PO HS 05/20/18 05/31/23 History aspirin 81 mg tablet,delayed 81 mg PO QAM 02/08/21 05/31/23 History release cholecalciferol (vitamin D3) 25 25 mcg PO 3XWK 02/08/21 05/31/23 History mcg (1,000 unit) tablet (Vitamin D3) famotidine 40 mg tablet (Pepcid) 40 mg PO DAILY PRN gastric upset 02/08/21 05/31/23 History vitamins A,C,L-qojg-vlrjeo 2,148 2 tab PO BID 02/08/21 05/31/23 History mcg-113 mg-45 mg-17.4 mg tablet (PreserVision AREDS) pantoprazole 40 mg tablet,delayed 40 mg PO BID #60 tabs 02/09/21 05/31/23 Rx release Patient History Medical History Anemia CAD (coronary artery disease) Calcium kidney stone CKD (chronic kidney disease), stage III GERD (gastroesophageal reflux disease) GIB (gastrointestinal bleeding) Hyperlipidemia Hypertension Tobacco abuse Surgical History History of amputation of toe History of cataract surgery 2mg IV versed given without problems History of hemorrhoidectomy History of tubal ligation Hx of colonoscopy Hx of heart bypass surgery triple, 1998 Family History Mother Colorectal cancer Social History Smoking Status: Current every day smoker Cigarettes Per Day: 20; Second Hand Exposure: Yes; Do You Dip or Chew Tobacco: No; Hx Alcohol Use: No Hx Substance Use: No Preferred Language: Maltese Communication Ability: Effective Traffic Observer Required: No Beliefs That Will Affect Care: None marital status: / Current Living Situation: Alone Other Information That Helps Us Care for You: No Feels Safe at Home: Yes Safety Concerns: Feels Safe At This Time Assistive Devices: None Review of Systems Review of Systems: All systems reviewed & are unremarkable except as noted in HPI & below Physical Exam Constitutional: WD/WN, vitals as above + ill appearing; no acute distress Eyes: PERRL, conjunctivae normal, anicteric sclerae Neck: normal visual inspection and trachea midline Respiratory: normal respiratory effort and + cough (productive) Auscultation: + crackles, + rhonchi and + wheezes Cardiovascular: Rate/Rhythm: regular rate and + tachycardic Heart Sounds: normal S1, normal S2 and + murmur Vessels: no JVD Extremities: no edema Gastrointestinal (Abdomen): normal bowel sounds, soft, nontender, no hepatosplenomegaly Skin: no rashes, warm and dry Psychiatric: A+Ox3, euthymic affect Results & Data Vital Signs (Past 12 Hours) Vital Signs Temp Pulse Resp BP Pulse Ox O2 Del Method O2 Flow Rate 06/01/23 10:27 84 18 92 Nasal Cannula 2 10/11/23 09:37 Nasal Cannula 2 06/01/23 07:25 36.7 C 88 19 137/71 92 Nasal Cannula 2 06/01/23 07:02 79 20 94 Nasal Cannula 3 06/01/23 04:00 36.4 C L 73 18 110/71 94 Nasal Cannula 4 06/01/23 03:01 82 20 93 Nasal Cannula 4 Laboratory Results Cardiac Enzymes 05/31/23 05/31/23 05/31/23 Range/Units 12:46 13:57 15:20 AST 28 (13-39) U/L Troponin I High Sens 35.2 H 30.5 H (0-14) pg/ml B-Natriuretic Peptide 182 H (0-100) pg/ml Coagulation 05/31/23 06/01/23 06/01/23 Range/Units 13:57 00:37 09:53 APTT 36.1 H 34.5 H (21.0-31.0) Seconds B-Natriuretic Peptide 182 H (0-100) pg/ml CBC 05/31/23 06/01/23 Range/Units 12:46 05:36 WBC 12.11 H 10.60 (4.8-10.8) K/ul RBC 5.49 H 5.06 (4.20-5.40) M/uL Hgb 16.0 14.6 (12.0-16.0) g/dl Hct 47.8 H 43.7 (37.0-47.0) % Plt Count 267 255 (130-400) K/uL Neut # (Auto) 10.23 H (1.40-6.50) K/uL Lymph # (Auto) 0.32 L (1.20-3.40) K/uL [place] # (Auto) 1.39 H (0.11-0.59) K/uL Eos # (Auto) 0.04 (0.00-0.50) K/uL Baso # (Auto) 0.09 (0.00-0.20) K/uL Comprehensive Metabolic Panel 05/31/23 06/01/23 Range/Units 12:46 05:36 Sodium 139 139 (136-145) mmol/L Potassium 3.7 3.9 (3.5-5.1) mmol/L Chloride 101 107 (98-107) mmol/L Carbon Dioxide 27 25 (21-32) mmol/L BUN 23 27 H (6-23) mg/dl Creatinine 0.96 0.99 (0.6-1.2) mg/dl Glucose 153 H 156 H (70-99(Fasting)) mg/dl Calcium 9.5 8.8 (8.6-10.3) mg/dl AST 28 (13-39) U/L ALT 23 (7-52) U/L Alkaline Phosphatase 101 (34-104) U/L Total Protein 7.8 (6.0-8.3) gm/dl Albumin 3.9 (3.4-5.0) gm/dl Intake and Output 05/31/23 06/01/23 06/01/23 22:59 06:59 14:59 Intake Total 1150 / 1254.683 104.683 / 1254.683 237.8 / 237.8 Balance 1150 / 1254.683 104.683 / 1254.683 237.8 / 237.8 Intake: IV 1150 / 1254.683 104.683 / 1254.683 237.8 / 237.8 Doxycycline Hyclate 100 mg In 100 / 100 100 / 100 Dextrose 5% Mini-B 100 ml @ 50 mls/hr IV Q12H [facility] Rx#:[id number] Heparin Sodium/Dextrose 25,000 104.683 / 104.683 87.8 / 87.8 units In 500 ml @ 550 UNITS/HR 11 mls/hr IV .Q24H [facility] Rx#: [id number] Sodium Chloride 0.9% 1,000 ml @ 1000 / 1000 999 mls/hr IV .Q1H1M ONE Rx#: [id number] cefTRIAXone SODIUM 2,000 mg In 50 / 50 Dextrose 5 % Mini-B 50 ml @ 100 mls/hr IV Q24H [facility] Rx#: [id number] cefTRIAXone SODIUM 2,000 mg In 50 / 50 50 ml @ 100 mls/hr IV NOW STA Rx#:[id number] Other: # Unmeasured Voids 1 Weight 46 kg 51 kg Weight Measurement Method Built in [facility] Built in [facility]
[2023-06-01] MEDS: METOPROLOL SUCC 25MG EXT REL TAB PO SCH ×2 (14:58→21:50)
--- NOTE | 2023-06-01 16:08 | Electrocardiogram Report ---
Test Reason : Blood Pressure : / mmHG Vent. Rate : 154 BPM Atrial Rate : 000 BPM P-R Int : 000 ms QRS Dur : 070 ms QT Int : 288 ms P-R-T Axes : 000 052 206 degrees QTc Int : 461 ms Atrial fibrillation with rapid ventricular response Septal infarct (cited on or before 18-JUL-2013) Abnormal ECG When compared with ECG of 31-MAY-2023 13:06, Atrial fibrillation has replaced Sinus rhythm Nonspecific T wave abnormality, worse in Lateral leads Confirmed by Terell Doyle ([id number]) on 06/01/2023 4:08:17 PM Referred By: Sarabjit Arana Confirmed By:Terell Doyle
--- NOTE | 2023-06-01 16:12 | Electrocardiogram Report ---
Test Reason : Blood Pressure : / mmHG Vent. Rate : 091 BPM Atrial Rate : 091 BPM P-R Int : 128 ms QRS Dur : 078 ms QT Int : 352 ms P-R-T Axes : 095 040 036 degrees QTc Int : 432 ms Sinus rhythm with Premature atrial complexes Septal infarct (cited on or before 18-JUL-2013) Abnormal ECG When compared with ECG of 31-MAY-2023 16:56, (unconfirmed) Sinus rhythm has replaced Atrial fibrillation Vent. rate has decreased BY 63 BPM Nonspecific T wave abnormality, improved in Inferior leads Nonspecific T wave abnormality no longer evident in Lateral leads Confirmed by Terell Doyle ([id number]) on 06/01/2023 4:12:29 PM Referred By: Sarabjit Arana Confirmed By:Terell Doyle
[2023-06-01 17:27] LABS: Partial Thromboplastin Ratio 2.1
[2023-06-01 17:41] LABS: Partial Thromboplastin Time 59.6 Seconds (21.0-31.0)
[2023-06-01] MEDS: HEPARIN SODIUM/DEXTROSE 25,000 UNITS/500 ML BAG IV SCH (18:26)
[2023-06-01] MEDS: ADVANCED PROBIOTIC 1250 MG CAPSULE PO SCH (21:48)
[2023-06-01] MEDS: ATORVASTATIN 40 MG TAB PO SCH (21:49)
[2023-06-02] MEDS: ALBUT/IPRATROP 3MG/0.5MG NEB 3 ML VIAL NEB SCH ×4 (02:11→20:20)
[2023-06-02] MEDS: DOXYCYCLINE HYCLATE 100 MG in DEXTROSE 5% MINI-B 100 ML IV SCH ×2 (06:06→16:32)
[2023-06-02 06:35] LABS: Hematocrit (blood only) 36.9 % (37.0-47.0); Hemoglobin 12.9 g/dl (12.0-16.0); Mean Corpuscular Hemoglobin 28.9 pg (25.0-34.0); Mean Corpuscular Volume 82.7 fL (80.0-100.0); Mean Platelet Volume 10.4 fL (9.4-12.4); Platelet Count 269 K/uL (130-400); RDW Coefficient of Variation 15.8 % (11.5-14.5); RDW Standard Deviation 48.2 fL (36.4-46.3); Red Blood Count 4.46 M/uL (4.20-5.40); White Blood Count 11.57 K/ul (4.8-10.8)
[2023-06-02 07:05] LABS: BUN Creatinine Ratio 28.9 (10-20); Calcium 8.6 mg/dl (8.6-10.3); Creatinine Clr Calc Pharmacy 28.1 ml/min; Est GFR (African American) 51.1 ml/min; Est GFR (Non-African American) 44.1 ml/min; Phosphorus 2.5 mg/dl (2.5-4.9); Potassium 3.4 mmol/L (3.5-5.1)
[2023-06-02 07:08] LABS: Partial Thromboplastin Ratio 1.3; Partial Thromboplastin Time 35.9 Seconds (21.0-31.0)
--- NOTE | 2023-06-02 07:53 | Cardiology Progress Note ---
Date of Service June 02, 2023 Assessment & Plan (1) Atrial fibrillation with rapid ventricular response: (2) Acute hypoxic respiratory failure: (3) Multifocal pneumonia: (4) Elevated troponin: Plan Impression: 83-year-old female with new onset atrial fibrillation with RVR in the setting of acute hypoxic respiratory failure secondary to multifocal pneumonia. Echo with borderline hyperdynamic LV systolic function, no regional WMA or significant valvular disease. EKG without acute ST segment changes. HS troponins mildly elevated and flat- likely in the setting of acute illness and demand/AFIB RVR. Low likelihood for ACS. Plan: PAF: Episodes of PAF yesterday evening-- very symptomatic with elevated sustained rates. Converted to ST on her own after IV Lopressor, now maintaining NSR 70s-80s on tele. Elevated heart rates/PAF driven my acute illness with pneumonia. Continue metoprolol succinate 25 mg BID. Elevated CHADSVASC score of 4 (age 1, female, CAD)-- transition IV heparin to Eliquis 2.5 mg BID (dose reduced for age and weight) Monitor renal function and electrolytes- recommend goal Potassium of 4.0 and mag of 2.0. PNA: SPO2 stable with supplemental o2 Supportive treatment of pneumonia per primary team. Wean O2 as tolerated Case discussed with Dr. Garrett- no further recommendations from a cardiology standpoint. Will sign off. Admission and Anticipated Discharge Date Admission Date: May 31, 2023 Supervising Physician Co-Signing Physician Notes Patient seen and examined, chart, medications, telemetry reviewed. Full assessment and plan as outlined above Still with rhonchorous cough minimally productive. No further arrhythmias since admission We will treat with chronic anticoagulation given arrhythmia, atrial fibrillation unless bleeding issues develop Subjective 83-year-old female with new onset symptomatic paroxysmal atrial fibrillation with RVR in the setting of acute hypoxic respiratory failure secondary to multifocal pneumonia. 06/01: Telemetry revealing sinus tachycardia and paroxysms of atrial fibrillation--Toprol tartrate discontinued in favor of metoprolol succinate 25 mg twice daily Heparin infusing for stroke prevention Echocardiogram: borderline hyperdynamic LV systolic function, no regional wall motion abnormalities, or significant valvular disease. 06/02: Tele: SR with PVCs 70-80s Patient resting comfortably in bed. No acute concerns. No PAF noted over night. Continues to have a moist productive cough. on supplemental o2 therapy. No chest pain, or lightheadedness. Mild dyspnea. Review of Systems Review of Systems: All systems reviewed & are unremarkable except as noted in HPI & below Physical Exam Constitutional: WD/WN, vitals as above + ill appearing; no acute distress Eyes: PERRL, conjunctivae normal, anicteric sclerae Neck: normal visual inspection and trachea midline Respiratory: normal respiratory effort and + cough (productive) Ausc ultation: + crackles, + rhonchi and + wheezes Cardiovascular: Rate/Rhythm: regular rate and + tachycardic Heart Sounds: normal S1, normal S2 and + murmur Vessels: no JVD Extremities: no edema Gastrointestinal (Abdomen): normal bowel sounds, soft, nontender, no hepatosplenomegaly Skin: no rashes, warm and dry Psychiatric: A+Ox3, euthymic affect Results & Data Vital Signs (Past 12 Hours) Vital Signs Temp Pulse Pulse Resp BP Pulse Ox Pulse Ox 06/02/23 06:59 75 90 06/02/23 04:21 36.6 C 89 16 150/87 H 94 06/02/23 02:12 82 20 91 06/02/23 00:00 93 H 06/02/23 00:23 36.5 C 89 16 148/76 H 90 06/01/23 20:00 06/01/23 20:00 98 06/01/23 22:23 82 20 95 06/01/23 21:14 36.6 C 18 122/69 98 O2 Del Method O2 Del Method O2 Flow Rate O2 Flow Rate 06/02/23 06:59 Nasal Cannula 06/02/23 04:21 Nasal Cannula 1 06/02/23 02:12 Nasal Cannula 1 06/02/23 00:00 06/02/23 00:23 Nasal Cannula 1 06/01/23 20:00 Nasal Cannula 2 06/01/23 20:00 Nasal Cannula 2 06/01/23 22:23 Nasal Cannula 2 06/01/23 21:14 Nasal Cannula 2 Laboratory Results Coagulation 06/01/23 06/02/23 Range/Units 16:09 06:01 APTT 59.6 H* 35.9 H (21.0-31.0) Seconds CBC 06/02/23 Range/Units 06:01 WBC 11.57 H (4.8-10.8) K/ul RBC 4.46 (4.20-5.40) M/uL Hgb 12.9 (12.0-16.0) g/dl Hct 36.9 L (37.0-47.0) % Plt Count 269 (130-400) K/uL Comprehensive Metabolic Panel 06/02/23 Range/Units 06:01 Sodium 140 (136-145) mmol/L Potassium 3.4 L (3.5-5.1) mmol/L Chloride 108 H (98-107) mmol/L Carbon Dioxide 24 (21-32) mmol/L BUN 33 H (6-23) mg/dl Creatinine 1.14 (0.6-1.2) mg/dl Glucose 106 H (70-99(Fasting)) mg/dl Calcium 8.6 (8.6-10.3) mg/dl Intake and Output 06/01/23 06/02/23 06/02/23 22:59 06:59 14:59 Intake Total 200.1 / 1013.133 175.233 / 1013.133 183.733 / 183.733 Balance 200.1 / 1013.133 175.233 / 1013.133 183.733 / 183.733 Intake: IV 200.1 / 613.133 175.233 / 613.133 183.733 / 183.733 Doxycycline Hyclate 100 mg In 100 / 200 100 / 100 Dextrose 5% Mini-B 100 ml @ 50 mls/hr IV Q12H [facility] Rx#:[id number] Heparin Sodium/Dextrose 25,000 100.1 / 363.133 175.233 / 363.133 33.733 / 33.733 units In 500 ml @ 700 UNITS/HR 14 mls/hr IV .Q24H [facility] Rx#: [id number] [id number] SODIUM 2,000 mg In 50 / 50 Dextrose 5 % Mini-B 50 ml @ 100 mls/hr IV Q24H [facility] Rx#: [id number] Other: # Unmeasured Voids 1 1 Weight 48.5 kg Weight Measurement Method Built in [facility]
[2023-06-02] MEDS ORDERED: HEPARIN IV BOLUS 2,000 UNITS in SYRINGE 0 ML IV ONE (08:00)
[2023-06-02] MEDS: guaiFENesin 600 MG TABCR PO SCH ×2 (08:52→19:50)
[2023-06-02] MEDS: CEROVITE ADV FORMULA TAB PO SCH ×2 (08:52→19:51)
[2023-06-02] MEDS: ASPIRIN 81 MG ECTAB PO SCH (08:52)
[2023-06-02] MEDS: ADVANCED PROBIOTIC 1250 MG CAPSULE PO SCH (08:52)
[2023-06-02] MEDS: METOPROLOL SUCC 25MG EXT REL TAB PO SCH ×2 (08:52→19:49)
[2023-06-02] MEDS: PANTOprazole 40 MG TAB PO SCH ×2 (08:53→19:49)
[2023-06-02] MEDS: cefTRIAXone SODIUM 2,000 MG in DEXTROSE 5 % MINI-B 50 ML IV SCH (08:53)
[2023-06-02] MEDS: HEPARIN SODIUM/DEXTROSE 25,000 UNITS/500 ML BAG IV SCH (09:08)
[2023-06-02] MEDS: APIXABAN 2.5 MG TAB PO SCH ×2 (11:58→19:48)
[2023-06-02] MEDS: ATORVASTATIN 40 MG TAB PO SCH (19:48)
[2023-06-03] MEDS: DOXYCYCLINE HYCLATE 100 MG in DEXTROSE 5% MINI-B 100 ML IV SCH ×2 (06:25→19:18)
[2023-06-03] MEDS: ALBUT/IPRATROP 3MG/0.5MG NEB 3 ML VIAL NEB SCH ×3 (07:55→20:06)
[2023-06-03] MEDS: PANTOprazole 40 MG TAB PO SCH ×2 (09:09→20:29)
[2023-06-03] MEDS: APIXABAN 2.5 MG TAB PO SCH ×2 (09:09→20:25)
[2023-06-03] MEDS: CHOLECALCIFEROL 1,000 UNITS 25 MCG TAB PO SCH (09:09)
[2023-06-03] MEDS: METOPROLOL SUCC 25MG EXT REL TAB PO SCH ×2 (09:09→20:24)
[2023-06-03] MEDS: ADVANCED PROBIOTIC 1250 MG CAPSULE PO SCH (09:09)
[2023-06-03] MEDS: cefTRIAXone SODIUM 2,000 MG in DEXTROSE 5 % MINI-B 50 ML IV SCH (09:09)
[2023-06-03] MEDS: guaiFENesin 600 MG TABCR PO SCH ×2 (09:09→20:26)
[2023-06-03] MEDS: CEROVITE ADV FORMULA TAB PO SCH ×2 (09:09→20:27)
[2023-06-03] MEDS: ASPIRIN 81 MG ECTAB PO SCH (09:09)
[2023-06-03 10:02] LABS: Hemoglobin 13.8 g/dl (12.0-16.0); Mean Corpuscular Hemoglobin 28.3 pg (25.0-34.0); Mean Corpuscular Hgb Conc 33.7 g/dL (32.0-36.0); Mean Corpuscular Volume 84.2 fL (80.0-100.0); Mean Platelet Volume 10.3 fL (9.4-12.4); Platelet Count 291 K/uL (130-400); RDW Standard Deviation 49.4 fL (36.4-46.3); Red Blood Count 4.87 M/uL (4.20-5.40)
[2023-06-03 10:27] LABS: BUN Creatinine Ratio 23.4 (10-20); Calcium 8.9 mg/dl (8.6-10.3); Creatinine Clr Calc Pharmacy 28.8 ml/min; Est GFR (African American) 52.8 ml/min; Est GFR (Non-African American) 45.6 ml/min; Magnesium 1.6 mg/dl (1.7-2.4); Phosphorus 2.7 mg/dl (2.5-4.9); Potassium 3.5 mmol/L (3.5-5.1)
--- NOTE | 2023-06-03 19:33 | Hospitalist Progress Note ---
Date of Service June 02, 2023 Assessment & Plan (1) Acute hypoxic respiratory failure: (2) Multifocal pneumonia: Plan: This is an 83yo F with a PMH of HTN, CAD, HLD, CKD III, ongoing tobacco use and other medical problems listed below who presents with worsening SOB x 3 days and was found to have acute hypoxic respiratory failure in setting of multifocal pneumonia. SOB and cough x 3 days, sent in by PCP due to hypoxia at 84% on room air in office(not on home O2) Afebrile, but meeting sepsis criteria with WBC 12, HR 110s, lactate 2.1 -> 1.3, procal 3.60 PCR negative for covid, RSV, flu CT chest obtained for better visualization, r/o PE - no pulmonary emboli identified. Multifocal bilateral pulmonary airspace opacities, greater within the right lung. The findings favor multifocal pneumonia. A follow-up chest CT in 2 months to ensure resolution is recommended. Suspected mild interstitial pulmonary edema. Continue Rocephin, doxycycline for CAP coverage Initially given IV Decadron in ED, no indication to continue at this time, re- evaluate in [facility] QIDR, incentive spirometry, continue supplemental O2 and wean as tolerated Clinically improving (3) Atrial fibrillation with rapid ventricular response: Plan: Initially presented in sinus tachycardia HR 110s in setting of PNA, ruled out PE Code tanisha called around 1700 day of admission- HR in 150s with repeat EKG showing new onset A fib with RVR, likely precipitated by PNA and IV Decadron as above Given 2.5mg IV Lopressor x 1 with decreased HR to 100 Starting Lopressor 25mg PO BID with hold parameters 2D echo, magnesium level 2.0, cardiology consulted Started IV heparin on admission -> now switched to PO eliquis 2.5 mg bid by cardiology (4) Tobacco abuse: Plan: Smoking 1/2 ppd but hasn't in 1 week due to feeling poorly, 50 pack years. Cessation education. Offered nicotine patch but declined (5) CAD (coronary artery disease): Plan: Chronic; stable. Continue aspirin, statin, atenolol held as lopressor started for afib (6) Hypertension: Plan: Chronic; stable (7) Hyperlipidemia: Plan: Chronic; stable. Continue statin (8) CKD (chronic kidney disease), stage III: Plan: Cr 0.96 - stable. Monitor with daily BMP DVT Ppx: IV heparin -> eliquis Code status: FULL PCP: Dr. Arana Dispo: PCU Admission and Anticipated Discharge Date Admission Date: May 31, 2023 Subjective Pt seen in follow up of hypoxia, multifocal pna, (hypoxic at PCP office), in ER went into afib w/ RVR Blood cultx negative so far, procalcitonin elevated at 3.6 Currently sitting up in chair in NAD No chest pain or shortness of breath at this time. No abd. pain, n/v Switched to PO eliquis by cardiology, IV heparin stopped Review of Systems Review of Systems: All systems reviewed & are unremarkable except as noted in Subjective Physical Exam Physical Exam: General Appearance:WD/WN, in NAD, on suppl. O2 Head: normocephalic, atraumatic Eyes:normal inspection, PERRL, conjunctivae normal, anicteric sclerae ENT: external ear and nose normal, oropharynx normal Neck: normal visual inspection Respiratory:normal respiratory effort, diminished lung sounds throughout, mild bibasilar rales, no wheeze or rhonchi. Cardiovascular: irregular, no BLE edema. Vessels: no JVD Chest: normal inspection of chest Abdomen/GI: normal bowel sounds, soft, nontender Extremities/Musculoskeletal:moves extremities Neurologic: PERRL, EOMI, no face palsy, no dysarthria, moves all extremities Psychiatric:A+Ox3, euthymic affect Skin: no rashes, warm/dry
[2023-06-03] MEDS ORDERED: POTASSIUM CHLORIDE CRTAB 20 MEQ TABCR PO STA (19:42)
--- NOTE | 2023-06-03 19:46 | Hospitalist Progress Note ---
Date of Service June 03, 2023 Assessment & Plan (1) Acute hypoxic respiratory failure: (2) Multifocal pneumonia: Plan: This is an 83yo F with a PMH of HTN, CAD, HLD, CKD III, ongoing tobacco use and other medical problems listed below who presents with worsening SOB x 3 days and was found to have acute hypoxic respiratory failure in setting of multifocal pneumonia. SOB and cough x 3 days, sent in by PCP due to hypoxia at 84% on room air in office(not on home O2) Afebrile, but meeting sepsis criteria with WBC 12, HR 110s, lactate 2.1 -> 1.3, procal 3.60 PCR negative for covid, RSV, flu CT chest obtained for better visualization, r/o PE - no pulmonary emboli identified. Multifocal bilateral pulmonary airspace opacities, greater within the right lung. The findings favor multifocal pneumonia. A follow-up chest CT in 2 months to ensure resolution is recommended. Suspected mild interstitial pulmonary edema. Continue Rocephin, doxycycline for CAP coverage Initially given IV Decadron in ED, no indication to continue Duonebs QIDR, incentive spirometry, continue supplemental O2 and wean as tolerated 06/03 Clinically improving, currently on RA, cough improved as well (3) Atrial fibrillation with rapid ventricular response: Plan: Initially presented in sinus tachycardia HR 110s in setting of PNA, ruled out PE Code tanisha called around 1700 day of admission- HR in 150s with repeat EKG showing new onset A fib with RVR, likely precipitated by PNA and IV Decadron as above Given 2.5mg IV Lopressor x 1 with decreased HR to 100 Started Lopressor 25mg PO BID with hold parameters -> cont. w/ metoprolol succinate 25 mg bid 2D echo, cardiology consulted, keep K at 4, Mag at 2 Started IV heparin on admission -> now switched to PO eliquis 2.5 mg bid by cardiology (4) Tobacco abuse: Plan: Smoking 1/2 ppd but hasn't in 1 week due to feeling poorly, 50 pack years. Cessation education. Offered nicotine patch but declined (5) CAD (coronary artery disease): Plan: Chronic; stable. Continue aspirin, statin, atenolol held as lopressor started for afib (6) Hypertension: Plan: Chronic; stable (7) Hyperlipidemia: Plan: Chronic; stable. Continue statin (8) CKD (chronic kidney disease), stage III: Plan: Cr 0.96 - stable. Monitor with daily BMP DVT Ppx: IV heparin -> eliquis Code status: FULL PCP: Dr. Arana Dispo: PCU Admission and Anticipated Discharge Date Admission Date: May 31, 2023 Subjective Pt seen in follow up of hypoxia, multifocal pna, (hypoxic at PCP office), in ER went into afib w/ RVR Currently sitting up in chair in NAD, on RA, cough improved No chest pain or shortness of breath at this time. No abd. pain, n/v Switched to PO eliquis by cardiology yesterday She is ambulating in her room w/o any difficulty Review of Systems Review of Systems: All systems reviewed & are unremarkable except as noted in Subjective Physical Exam Physical Exam: General Appearance:WD/WN, in NAD, on RA Head: normocephalic, atraumatic Eyes:normal inspection, PERRL, conjunctivae normal, anicteric sclerae ENT: external ear and nose normal, oropharynx normal Neck: normal visual inspection Respiratory:normal respiratory effort, diminished lung sounds throughout, mild bibasilar rales, no wheeze or rhonchi. Cardiovascular: regular, no BLE edema. Vessels: no JVD Chest: normal inspection of chest Abdomen/GI: normal bowel sounds, soft, nontender Extremities/Musculoskeletal:moves extremities Neurologic: PERRL, EOMI, no face palsy, no dysarthria, moves all extremities Psychiatric:A+Ox3, euthymic affect Skin: no rashes, warm/dry Results & Data Results & Data Vital Signs (Past 12 Hours) Vital Signs Temp Pulse Pulse Resp BP BP Pulse Ox 06/03/23 15:36 36.8 C 120 H 17 161/94 H 94 06/03/23 13:31 85 18 95 06/03/23 11:18 36.6 C 85 18 146/81 H 95 06/03/23 08:00 89 06/03/23 08:00 06/03/23 07:57 36.6 C 76 18 145/76 H 93 06/03/23 07:55 78 18 93 O2 Del Method O2 Flow Rate 06/03/23 15:36 Room Air 06/03/23 13:31 Room Air 06/03/23 11:18 Room Air 06/03/23 08:00 06/03/23 08:00 Room Air 06/03/23 07:57 Room Air 06/03/23 07:55 Nasal Cannula 1 Laboratory Results 06/03/23 06/03/23 Range/Units 09:41 09:41 WBC 7.40 (4.8-10.8) K/ul RBC 4.87 (4.20-5.40) M/uL Hgb 13.8 (12.0-16.0) g/dl Hct 41.0 (37.0-47.0) % MCV 84.2 (80.0-100.0) fL MCH 28.3 (25.0-34.0) pg MCHC 33.7 (32.0-36.0) g/dL RDW Std Deviation 49.4 H (36.4-46.3) fL RDW Coeff of Essie 16.0 H (11.5-14.5) % Plt Count 291 (130-400) K/uL MPV 10.3 (9.4-12.4) fL Sodium 139 (136-145) mmol/L Potassium 3.5 (3.5-5.1) mmol/L Chloride 104 (98-107) mmol/L Carbon Dioxide 28 (21-32) mmol/L Anion Gap 7 (3-11) BUN 26 H (6-23) mg/dl Creatinine 1.11 (0.6-1.2) mg/dl Est Cr Clr Drug Dosing 28.8 ml/min Est GFR ( Amer) 52.8 ml/min Est GFR (Non-Af Amer) 45.6 ml/min BUN/Creatinine Ratio 23.4 H (10-20) Glucose 141 H (70-99(Fasting)) mg/dl Calcium 8.9 (8.6-10.3) mg/dl Phosphorus 2.7 (2.5-4.9) mg/dl Magnesium 1.6 L (1.7-2.4) mg/dl Medications Administered Current Inpatient Medications Acetaminophen (Acetaminophen 325 Mg Tab) 650 mg PO Q4H PRN PRN Reason: Pain or Fever Stop: 06/30/23 17:04 Albuterol (Albut/Ipratrop 3mg/0.5mg Neb 3 Ml Vial) 3 ml NEB TIDR [facility]; Protocol Stop: 07/02/23 12:59 Last Admin: 06/03/23 13:31 Dose: 3 ml Apixaban (Apixaban 2.5 Mg Tab) 2.5 mg PO BID [facility] Stop: 07/02/23 11:29 Last Admin: 06/03/23 09:09 Dose: 2.5 mg Aspirin (Aspirin 81 Mg Ectab) 81 mg PO QAM [facility] Stop: 07/01/23 08:59 Last Admin: 06/03/23 09:09 Dose: 81 mg Atorvastatin Calcium (Atorvastatin 40 Mg Tab) 40 mg PO HS [facility] Stop: 06/30/23 20:59 Last Admin: 06/02/23 19:48 Dose: 40 mg Famotidine (Famotidine 40 Mg Tablet) 40 mg PO DAILY PRN PRN Reason: gastric upset Stop: 06/30/23 17:04 Guaifenesin (Guaifenesin 600 Mg Tabcr) 600 mg PO Q12 [facility] Stop: 07/01/23 09:19 Last Admin: 06/03/23 09:09 Dose: 600 mg Ceftriaxone Sodium 2,000 mg/ (Dextrose) 50 mls @ 100 mls/hr IV Q24H [facility]; Protocol Stop: 06/07/23 09:29 Last Infusion: 06/03/23 10:18 Dose: Infused Doxycycline Hyclate 100 mg/ (Dextrose) 100 mls @ 50 mls/hr IV Q12H [facility] Stop: 06/07/23 17:04 Last Admin: 06/03/23 19:18 Dose: 50 mls/hr Lactobacillus Acidophilus (Advanced Probiotic 1250 Mg Capsule) 2 cap PO DAILY [facility] Stop: 07/01/23 19:59 Last Admin: 06/03/23 09:09 Dose: 2 cap Magnesium Oxide (Magnesium Oxide 400 Mg Tab) 400 mg PO BID [facility] Stop: 07/03/23 20:59 Metoprolol Succinate (Metoprolol Succ 25mg Ext Rel Tab) 25 mg PO BID [facility] Stop: 07/01/23 12:59 Last Admin: 06/03/23 09:09 Dose: 25 mg Multivitamins/Minerals (Cerovite Adv Formula Tab) 1 tab PO BID [facility] Stop: 06/30/23 20:59 Last Admin: 06/03/23 09:09 Dose: 1 tab Ondansetron HCl (Ondansetron Inj 2 Mg/Ml 2 Ml Vial) 4 mg IV Q6H PRN PRN Reason: Nausea Stop: 06/30/23 17:04 Pantoprazole Sodium (Pantoprazole 40 Mg Tab) 40 mg PO BID [facility] Stop: 06/30/23 20:59 Last Admin: 06/03/23 09:09 Dose: 40 mg Polyethylene Glycol (Polyethylene (Miralax) 17 Gm Pack) 17 gm PO DAILY PRN PRN Reason: Constipation Stop: 06/30/23 17:04 Vitamin D (Cholecalciferol 1,000 Units 25 Mcg Tab) 1,000 units PO [id number] [facility] Stop: 07/01/23 08:59 Last Admin: 06/03/23 09:09 Dose: 1,000 units
[2023-06-03] MEDS: ATORVASTATIN 40 MG TAB PO SCH (20:24)
[2023-06-03] MEDS: MAGNESIUM OXIDE 400 MG TAB PO SCH (20:32)
[2023-06-04] MEDS: DOXYCYCLINE HYCLATE 100 MG in DEXTROSE 5% MINI-B 100 ML IV SCH (05:47)
[2023-06-04] MEDS: ALBUT/IPRATROP 3MG/0.5MG NEB 3 ML VIAL NEB SCH (07:26)
[2023-06-04 07:38] LABS: Hematocrit (blood only) 39.5 % (37.0-47.0); Hemoglobin 13.4 g/dl (12.0-16.0); Mean Corpuscular Hemoglobin 28.5 pg (25.0-34.0); Mean Corpuscular Hgb Conc 33.9 g/dL (32.0-36.0); Mean Platelet Volume 10.3 fL (9.4-12.4); Platelet Count 297 K/uL (130-400); RDW Coefficient of Variation 15.5 % (11.5-14.5); RDW Standard Deviation 47.8 fL (36.4-46.3); White Blood Count 8.52 K/ul (4.8-10.8)
[2023-06-04 08:03] LABS: BUN Creatinine Ratio 24.5 (10-20); Creatinine Clr Calc Pharmacy 31.6 ml/min; Est GFR (African American) 58.5 ml/min; Est GFR (Non-African American) 50.5 ml/min; Magnesium 1.9 mg/dl (1.7-2.4); Phosphorus 3.7 mg/dl (2.5-4.9); Potassium 4.9 mmol/L (3.5-5.1)
[2023-06-04] MEDS: MAGNESIUM OXIDE 400 MG TAB PO SCH (08:37)
[2023-06-04] MEDS: guaiFENesin 600 MG TABCR PO SCH (08:37)
[2023-06-04] MEDS: APIXABAN 2.5 MG TAB PO SCH (08:37)
[2023-06-04] MEDS: cefTRIAXone SODIUM 2,000 MG in DEXTROSE 5 % MINI-B 50 ML IV SCH (08:37)
[2023-06-04] MEDS: METOPROLOL SUCC 25MG EXT REL TAB PO SCH (08:37)
[2023-06-04] MEDS: ADVANCED PROBIOTIC 1250 MG CAPSULE PO SCH (08:37)
[2023-06-04] MEDS: ASPIRIN 81 MG ECTAB PO SCH (08:37)
[2023-06-04] MEDS: PANTOprazole 40 MG TAB PO SCH (08:38)
[2023-06-04] MEDS: CEROVITE ADV FORMULA TAB PO SCH (08:38)
--- NOTE | 2023-06-04 10:46 | Discharge Summary ---
Date of Service June 04, 2023 Admission HPI Per Admitting Provider This is an 83yo F with a PMH of HTN, CAD, HLD, CKD III, ongoing tobacco use and other medical problems listed below who presents with worsening SOB x 3 days. Symptoms began on Tuesday and worsening over the weekend. Feels exhausted, more SOB, increased cough. Had a few small emesis episodes as well but thinks it was mucus she had swallowed. Seen by PCP this morning and noted to be hypoxic in office at 84% and directed to ED for further evaluation. Is not on oxygen at baseline. Smokes 1/2 ppd, 50 pack years per chart review but has not felt well enough to smoking over a week. Denies any fever or chills, lightheadedness, chest pain, palpitations, wheezing, nausea, abdominal pain, dysuria, diarrhea or constipation. Denies any formal diagnosis of COPD in the past. Admission Exam Per Admitting Provider General Appearance:WD/WN, vitals as above, NAD, sitting up in bed, pleasant, conversing easily Head: normocephalic, atraumatic Eyes:normal inspection, PERRL, conjunctivae normal, anicteric sclerae ENT: external ear and nose normal, oropharynx normal Neck: normal visual inspection, trachea midline, no thyromegaly Respiratory:normal respiratory effort, diminished lung sounds throughout, mild bibasilar rales, no wheeze or rhonchi. No accessory muscle use Cardiovascular: tachycardic rate, normal peripheral pulses, no BLE edema. Vessels: no JVD Chest: normal inspection of chest Abdomen/GI: normal bowel sounds, soft, nontender, no hepatosplenomegaly Extremities/Musculoskeletal: no cyanosis or clubbing, extremities motor strength 5/5 Neurologic: PERRL, EOMI, accommodation nl, no face palsy, no dysarthria, CN's II-XI intact bilaterally and moves all extremities Psychiatric:A+Ox3, euthymic affect Skin: no rashes, normal color, warm/dry Principal Diagnosis Multifocal pneumonia, hypoxia Afib w/ RVR Discharge Exam General Appearance:WD/WN, in NAD, on RA Head: normocephalic, atraumatic Eyes:normal inspection, PERRL, conjunctivae normal, anicteric sclerae ENT: external ear and nose normal, oropharynx normal Neck: normal visual inspection Respiratory:normal respiratory effort, diminished lung sounds throughout, mild bibasilar rales, no wheeze or rhonchi. Cardiovascular: regular, no BLE edema. Vessels: no JVD Chest: normal inspection of chest Abdomen/GI: normal bowel sounds, soft, nontender Extremities/Musculoskeletal:moves extremities Neurologic: PERRL, EOMI, no face palsy, no dysarthria, moves all extremities Psychiatric:A+Ox3, euthymic affect Skin: no rashes, warm/dry Discharge Data Allergies Allergy/AdvReac Type Severity Reaction Status Date / Time Sulfa (Sulfonamide Allergy Unknown HIVES Verified 02/09/21 08:37 Antibiotics) varenicline [From Chantix] AdvReac Depression Verified 02/09/21 08:37 Consultations 05/31/23 14:27 ED Decision to Admit Stat 05/31/23 17:20 Consult Cardiology Routine Ordered Studies 05/31/23 16:02 CT angio chest PE protocol Routine FINDINGS: No pulmonary emboli are identified. There is no thoracic aortic dissection. There are median sternotomy wires and postoperative findings from bypass grafting. There is mild cardiomegaly and moderate coronary artery catheterization. No pericardial effusion is noted. There is no pneumothorax. There is a small right pleural effusion. Lungs are suboptimally assessed due to respiratory motion. Multifocal patchy airspace opacities within the right lung are noted. There are also mild airspace opacities within the lingula. Moderate emphysema is present. There is mild interlobular septal thickening. Mildly enlarged right hilar lymph nodes are noted. Index node on image 115 of 255 measures 1.5 x 0.1 cm. A few hypodense hepatic lesions are unchanged since prior abdominal CT. These are benign. IMPRESSION: 1. No pulmonary emboli identified. 2. Multifocal bilateral pulmonary airspace opacities, greater within the right lung. The findings favor multifocal pneumonia. A follow-up chest CT in 2 months to ensure resolution is recommended. 3. Mildly enlarged right hilar lymph nodes. These are likely reactive but can be assessed on follow-up CT. 4. Small right pleural effusion. 5. Emphysema. 6. Suspected mild interstitial pulmonary edema. Hospital Course (1) Acute hypoxic respiratory failure: (2) Multifocal pneumonia: This is an 83yo F with a PMH of HTN, CAD, HLD, CKD III, ongoing tobacco use and other medical problems listed below who presents with worsening SOB x 3 days and was found to have acute hypoxic respiratory failure in setting of multifocal pneumonia. SOB and cough x 3 days, sent in by PCP due to hypoxia at 84% on room air in office(not on home O2) Afebrile, but meeting sepsis criteria with WBC 12, HR 110s, lactate 2.1 -> 1.3, procal 3.60 PCR negative for covid, RSV, flu CT chest obtained for better visualization, r/o PE - no pulmonary emboli identified. Multifocal bilateral pulmonary airspace opacities, greater within the right lung. The findings favor multifocal pneumonia. A follow-up chest CT in 2 months to ensure resolution is recommended. Suspected mild interstitial pulmonary edema. Continue Rocephin, doxycycline for CAP coverage Initially given IV Decadron in ED, no indication to continue Duonebs QIDR, incentive spirometry, continue supplemental O2 and wean as tolerated 06/03 Clinically improving, currently on RA, cough improved as well 06/04 plan to discharge on PO abx for 2 more days, follow up w/ PCP on 06/09 arranged. Smoking cessation encouraged. (3) Atrial fibrillation with rapid ventricular response: Initially presented in sinus tachycardia HR 110s in setting of PNA, ruled out PE Code tanisha called around 1700 day of admission- HR in 150s with repeat EKG showing new onset A fib with RVR, likely precipitated by PNA and IV Decadron as above Given 2.5mg IV Lopressor x 1 with decreased HR to 100 Started Lopressor 25mg PO BID with hold parameters -> cont. w/ metoprolol succinate 25 mg bid, stop atenolol on DC 2D echo, cardiology consulted, keep K at 4, Mag at 2 Started IV heparin on admission -> now switched to PO eliquis 2.5 mg bid by cardiology (4) Tobacco abuse: Smoking 1/2 ppd but hasn't in 1 week due to feeling poorly, 50 pack years. Cessation education. Offered nicotine patch but declined (5) CAD (coronary artery disease): Chronic; stable. Continue aspirin, statin, atenolol held as lopressor started for afib (6) Hypertension: Chronic; stable (7) Hyperlipidemia: Chronic; stable. Continue statin (8) CKD (chronic kidney disease), stage III: Cr 0.96 - stable. Total Time Total Time Spent Total Time Spent (In Minutes): 40 Discharge Plan Discharge Items Patient Disposition: Home - Self-Care Reason For Visit: HYPOXIA Discharge Diagnosis: Multifocal pneumonia, hypoxia Afib w/ RVR Activity: Per Instructions section Non-emergency contact: Primary Care Provider Call non-emergency contact if: you have any medication questions and your symptoms worsen Follow-up/Referrals: Sarabjit Arana MD [Primary Care Provider] - (Date & Time 06/09/2023 11:00 AM Provider Sarabjit Arana III, MD Department [facility] ) Diet: Heart Healthy Addtl Attending Provider Instructions: Follow up with your primary care doctor, the appointment was schedule for you for June 09. Finish antibiotic (cefuroxime and doxycycline) treatment for pneumonia, as prescribed. Also recommend using guaifenesin/Mucinex. Continue using flutter valve and incentive spirometer. Recommend taking probiotics, while on antibiotic. You were seen by cardiology here, and you were started on Eliquis 2.5 mg twice a day (blood thinner) and metoprolol succinate 25 mg twice daily. Do not take atenolol anymore. Pending Studies at Discharge: Yes Studies:: Final blood cultx results Stand-Alone Forms: My [facility] [employer], Smoking Cessation Medications and DC Order Prescriptions: New Eliquis 2.5 mg Tablet 2.5 mg PO BID 30 Days Qty: 60 0RF guaifenesin [Mucinex] 600 mg Tablet Extended Release 12hr 600 mg PO Q12 5 Days Qty: 10 0RF Advanced Probiotic 625 mg (10 billion cell) Capsule 2 cap PO DAILY 5 Days Qty: 10 0RF metoprolol succinate 25 mg Tablet Extended Release 24 Hr 25 mg PO BID 30 Days Qty: 60 0RF cefuroxime axetil 500 mg tablet 500 mg PO BID 2 Days Qty: 4 0RF doxycycline hyclate 100 mg capsule 100 mg PO BID 2 Days Qty: 4 0RF Continued atorvastatin [Lipitor] 40 mg Tablet 40 mg PO HS famotidine [Pepcid] 40 mg Tablet 40 mg PO DAILY PRN (Reason: gastric upset) aspirin 81 mg Tablet,Delayed Release (Dr/Ec) 81 mg PO QAM cholecalciferol (vitamin D3) [Vitamin D3] 25 mcg (1,000 unit) Tablet 25 mcg PO 3XWK Rx Instructions: Tuesday PreserVision AREDS 7,160 unit- 113 mg-100 unit Tablet 2 tab PO BID pantoprazole 40 mg tablet,delayed release (DR/EC) 40 mg PO BID Qty: 60 1RF Discontinued atenolol 25 mg Tablet 25 mg PO QAM Discharge Orders: Discharge Order (Routine); Ordered 06/04/23 Ordered By: Trev De Santiago Admission Data Admit Date/Time: 05/31/23 15:01 Attending Provider: Trev De Santiago Admit Provider: Tyler Banegas Primary Care Provider: Sarabjit Arana Other Providers: Tyler Banegas ; Bonifacio Garrett
--- NOTE | 2023-06-07 05:33 | Coding Query ---
SEPSIS To promote full compliance with coding requirements relating to patient care, physician participation is requested in all cases of dowel pin man uncertainty. Please assist us with the question(s) below: In responding to this query, please exercise your independent professional judgement. The fact that a question is asked does not imply that any particular answer is desired or expected. We appreciate your clarification on this issue. The medical record reflects the following clinical findings: Pt admitted with acute hypoxic respiratory failure and Pneumonia. Progress notes & Discharge Summary documented "afebrile, but meeting Sepsis criteria with WBC 12, HR 110's, lactate 2.1, procal 3.6" . Please check below the diagnosis , if applicable, that was treated during this Inpatient stay. Thank you. Eloy Hector [facility] ____ ( )Bacteremia (Nonspecific laboratory finding of bacteria in the blood) Specify Organism ( ) Present on Admission ( ) Not present on admission ( ) Unable to clinically determine ( ) Septicemia (Systemic disease associated with the presence of pathogenic microorganisms in the blood): Specify Organism ( ) Present on Admission ( ) Not present on admission ( ) Unable to clinically determine ( )x Sepsis Specify Organism Specify Associated Condition/Diagnosis (x ) Present on Admission ( ) Not present on admission ( ) Unable to clinically determine ( ) Severe Sepsis (Sepsis associated with acute organ dysfunction) Specify Organism Specify Associated Condition/Diagnosis ( ) Present on Admission ( ) Not present on admission ( ) Unable to clinically determine ( ) Septic Shock (Severe sepsis with acute circulatory failure, unexplained by other causes) ( ) Present on Admission ( ) Not present on admission ( ) Unable to clinically determine ( ) Other, patient has: MTDD
== END 2023-06-04 12:34 | disposition home or self-care (01) | DRG 871 ==
LOC: ED 12:08 → EDINP 15:01 → SUATTDRO 15:01 → 4W 17:05